=== PATIENT | male | born 1945 | race Two or more races ===

== ENCOUNTER 2017-09-23 08:01 | Day surgery (SDC) | payer MEDICARE ==
[2017-09-23] MEDS ORDERED: BETA ACET/BET NA PHOS MDV 6 MG/ML VIAL IM ONE (08:02)
[2017-09-23] MEDS ORDERED: BUPIVACAINE 0.5 % PF 150 MG/30 ML VIAL ONE (08:10)
[2017-09-23] MEDS ORDERED: DEXAMETHASONE SOD PHOSPHATE 10 MG/ML VIAL ONE (08:10)
[2017-09-23] MEDS ORDERED: IOHEXOL 50 ML IV ONE (08:10)
[2017-09-23] MEDS ORDERED: FENTANYL PF 100MCG/2ML AMPUL ONE (09:48)
[2017-09-23] MEDS ORDERED: MIDAZOLAM HCL 2 MG/2ML VIAL ONE (09:48)
== END 2017-09-23 11:00 | disposition home or self-care (01) ==
LOC: DS 08:01
PROVIDERS: ATTEND Anesthesiology
DX: M70.62 Trochanteric bursitis, left hip (principal); M70.61 Trochanteric bursitis, right hip; M53.3 Sacrococcygeal disorders, not elsewhere classified; M76.30 Iliotibial band syndrome, unspecified leg; M46.96 Unspecified inflammatory spondylopathy, lumbar region; M47.816 Spondylosis without myelopathy or radiculopathy, lumbar region; I10 Essential (primary) hypertension
CPT/HCPCS: 73020; A6209; J0702; J1100; J2250; J3010; J3490; Q9967; Z7610

== ENCOUNTER 2017-10-10 06:49 | Day surgery (SDC) | payer MEDICARE ==
[2017-10-10] MEDS ORDERED: methylPREDNISolone ACETATE 80 MG/ML VIAL ONE (08:24)
[2017-10-10] MEDS ORDERED: BUPIVACAINE 0.25% 75 MG/30 ML VIAL ONE (08:24)
[2017-10-10] MEDS ORDERED: MIDAZOLAM HCL 2 MG/2ML VIAL ONE ×2 (08:26→08:47)
[2017-10-10] MEDS ORDERED: FENTANYL PF 100MCG/2ML AMPUL ONE (08:27)
[2017-10-10] MEDS ORDERED: IOHEXOL 50 ML IV ONE (08:37)
[2017-10-10] MEDS ORDERED: LIDOCAINE 2% 50 ML MDV IJ ONE (08:44)
== END 2017-10-10 10:00 | disposition home or self-care (01) ==
LOC: DS 06:49
PROVIDERS: ATTEND Anesthesiology
DX: M47.816 Spondylosis without myelopathy or radiculopathy, lumbar region (principal); M47.817 Spondylosis without myelopathy or radiculopathy, lumbosacral region; M53.3 Sacrococcygeal disorders, not elsewhere classified; I10 Essential (primary) hypertension; M48.061 Spinal stenosis, lumbar region without neurogenic claudication
CPT/HCPCS: 62323; 72170; A6402; J1040; J2250 ×2; J3010; J3490 ×2; Q9967; Z7610

== ENCOUNTER 2017-10-28 12:28 | Outpatient (CLI) | payer MEDICARE | END 2017-10-28 23:59 | disposition home or self-care (01) | LOC: MSC 12:28 | PROVIDERS: ATTEND Anesthesiology | DX: M54.5 Low back pain (principal); M46.96 Unspecified inflammatory spondylopathy, lumbar region; M51.36 Other intervertebral disc degeneration, lumbar region; M48.061 Spinal stenosis, lumbar region without neurogenic claudication; M47.817 Spondylosis without myelopathy or radiculopathy, lumbosacral region; M25.9 Joint disorder, unspecified; M53.3 Sacrococcygeal disorders, not elsewhere classified; M70.61 Trochanteric bursitis, right hip; M70.62 Trochanteric bursitis, left hip; M76.32 Iliotibial band syndrome, left leg; M76.31 Iliotibial band syndrome, right leg; I10 Essential (primary) hypertension ==

== ENCOUNTER 2017-11-12 07:00 | Day surgery (SDC) | payer MEDICARE ==
[2017-11-12] MEDS ORDERED: FENTANYL PF 100MCG/2ML AMPUL ONE (08:55)
[2017-11-12] MEDS ORDERED: MIDAZOLAM 50 MG/10 ML VIAL ONE (08:55)
[2017-11-12] MEDS ORDERED: methylPREDNISolone ACETATE 80 MG/ML VIAL ONE (08:56)
[2017-11-12] MEDS ORDERED: BUPIVACAINE 0.25% 75 MG/30 ML VIAL ONE (08:56)
[2017-11-12] MEDS ORDERED: IOHEXOL 240MG/ML 50 ML IV ONE (08:56)
[2017-11-12] MEDS ORDERED: LIDOCAINE 1% INJ 50 ML MDV IJ ONE (08:56)
== END 2017-11-12 10:15 | disposition home or self-care (01) ==
LOC: DS 07:00
PROVIDERS: ATTEND Anesthesiology
DX: M47.816 Spondylosis without myelopathy or radiculopathy, lumbar region (principal); I10 Essential (primary) hypertension; Z79.899 Other long term (current) drug therapy
CPT/HCPCS: 72100-TC; A6209; J1040; J2250; J3010; J3490; Q9966; Z7610

== ENCOUNTER 2017-11-18 10:30 | Outpatient (CLI) | payer MEDICARE | END 2017-11-18 23:59 | disposition home or self-care (01) | LOC: MSC 10:30 | PROVIDERS: ATTEND Anesthesiology | DX: M46.96 Unspecified inflammatory spondylopathy, lumbar region (principal); M51.36 Other intervertebral disc degeneration, lumbar region; M48.061 Spinal stenosis, lumbar region without neurogenic claudication; M70.61 Trochanteric bursitis, right hip; M70.62 Trochanteric bursitis, left hip; M47.816 Spondylosis without myelopathy or radiculopathy, lumbar region; M47.817 Spondylosis without myelopathy or radiculopathy, lumbosacral region; M25.9 Joint disorder, unspecified; M53.3 Sacrococcygeal disorders, not elsewhere classified; M76.32 Iliotibial band syndrome, left leg; M76.31 Iliotibial band syndrome, right leg ==

== ENCOUNTER → 2017-12-10 | Day surgery (SDC) | payer MEDICARE ==
[~2017-12-10] MED LIST: BUPIVACAINE 0.25% 75 MG/30 ML VIAL IJ ONE; FENTANYL PF 100MCG/2ML AMPUL ONE; IOHEXOL 240MG/ML 50 ML IV ONE; KETOROLAC TROMETHAMINE INJ 30 MG/ML VIAL ONE; MIDAZOLAM 50 MG/10 ML VIAL ONE; methylPREDNISolone ACETATE 80 MG/ML VIAL ONE
== END | disposition home or self-care (01) ==
LOC: DS 06:47
PROVIDERS: ATTEND Anesthesiology
DX: M47.817 Spondylosis without myelopathy or radiculopathy, lumbosacral region (principal); M51.36 Other intervertebral disc degeneration, lumbar region; M48.061 Spinal stenosis, lumbar region without neurogenic claudication; E78.5 Hyperlipidemia, unspecified; K21.9 Gastro-esophageal reflux disease without esophagitis; I10 Essential (primary) hypertension; Z98.890 Other specified postprocedural states; Z79.899 Other long term (current) drug therapy
CPT/HCPCS: 72020-TC; 73501; A6209; J1040; J1885; J2250; J3010; J3490; J7030; Q9966; Z7610

== ENCOUNTER 2018-02-17 10:45 | Outpatient (CLI) | payer MEDICARE | END 2018-02-17 23:59 | disposition home or self-care (01) | LOC: MSC 10:45 | PROVIDERS: ATTEND Anesthesiology | DX: M46.96 Unspecified inflammatory spondylopathy, lumbar region (principal); M51.36 Other intervertebral disc degeneration, lumbar region; M48.061 Spinal stenosis, lumbar region without neurogenic claudication; M47.816 Spondylosis without myelopathy or radiculopathy, lumbar region; M47.817 Spondylosis without myelopathy or radiculopathy, lumbosacral region; M25.9 Joint disorder, unspecified; M70.61 Trochanteric bursitis, right hip; M70.62 Trochanteric bursitis, left hip; Y93.9 Activity, unspecified; M76.32 Iliotibial band syndrome, left leg; M76.31 Iliotibial band syndrome, right leg; I48.91 Unspecified atrial fibrillation; Z79.1 Long term (current) use of non-steroidal anti-inflammatories (NSAID) ==

== ENCOUNTER 2018-03-17 09:00 | Outpatient (CLI) | payer MEDICARE | END 2018-03-17 23:59 | disposition home or self-care (01) | LOC: MSC 09:00 | PROVIDERS: ATTEND Anesthesiology | DX: M46.96 Unspecified inflammatory spondylopathy, lumbar region (principal); M51.36 Other intervertebral disc degeneration, lumbar region; M48.061 Spinal stenosis, lumbar region without neurogenic claudication; M47.816 Spondylosis without myelopathy or radiculopathy, lumbar region; M25.9 Joint disorder, unspecified; M53.3 Sacrococcygeal disorders, not elsewhere classified; M70.61 Trochanteric bursitis, right hip; M70.62 Trochanteric bursitis, left hip; M76.32 Iliotibial band syndrome, left leg; M76.31 Iliotibial band syndrome, right leg; I10 Essential (primary) hypertension; I48.91 Unspecified atrial fibrillation ==

== ENCOUNTER 2018-07-09 06:48 | Day surgery (SDC) | payer MEDICARE ==
[2018-07-09] MEDS ORDERED: MIDAZOLAM HCL 2 MG/2ML VIAL ONE (08:32)
[2018-07-09] MEDS ORDERED: FENTANYL PF 100MCG/2ML AMPUL ONE (08:32)
[2018-07-09] MEDS ORDERED: methylPREDNISolone ACETATE 80 MG/ML VIAL ONE (08:52)
[2018-07-09] MEDS ORDERED: KETOROLAC TROMETHAMINE INJ 30 MG/ML VIAL ONE (09:24)
== END 2018-07-09 10:01 | disposition home or self-care (01) ==
LOC: DS 06:48
PROVIDERS: ATTEND Anesthesiology
DX: M17.0 Bilateral primary osteoarthritis of knee (principal); M70.62 Trochanteric bursitis, left hip; M70.61 Trochanteric bursitis, right hip; M76.32 Iliotibial band syndrome, left leg; M76.31 Iliotibial band syndrome, right leg; M25.562 Pain in left knee; M25.561 Pain in right knee; I10 Essential (primary) hypertension; Z79.899 Other long term (current) drug therapy; Z98.890 Other specified postprocedural states
CPT/HCPCS: 20610; 64450; 73501 ×2; 73560 ×2; J1040; J1885; J2250; J3010; J7030; Z7610; 73020

== ENCOUNTER 2018-07-28 10:00 | Outpatient (CLI) | payer MEDICARE | END 2018-07-28 23:59 | disposition home or self-care (01) | LOC: MSC 10:00 | PROVIDERS: ATTEND Anesthesiology | DX: M17.0 Bilateral primary osteoarthritis of knee (principal); M46.96 Unspecified inflammatory spondylopathy, lumbar region; M51.36 Other intervertebral disc degeneration, lumbar region; M48.061 Spinal stenosis, lumbar region without neurogenic claudication; M47.816 Spondylosis without myelopathy or radiculopathy, lumbar region; M47.817 Spondylosis without myelopathy or radiculopathy, lumbosacral region; M25.9 Joint disorder, unspecified; M53.3 Sacrococcygeal disorders, not elsewhere classified; M76.31 Iliotibial band syndrome, right leg; M76.32 Iliotibial band syndrome, left leg; M70.62 Trochanteric bursitis, left hip; M70.61 Trochanteric bursitis, right hip; M54.5 Low back pain; M25.561 Pain in right knee; M25.562 Pain in left knee ==

== ENCOUNTER 2018-09-01 09:00 | Outpatient (CLI) | payer MEDICARE | END 2018-09-01 23:59 | disposition home or self-care (01) | LOC: MSC 09:00 | PROVIDERS: ATTEND Anesthesiology | DX: M51.36 Other intervertebral disc degeneration, lumbar region (principal); M46.96 Unspecified inflammatory spondylopathy, lumbar region; M48.061 Spinal stenosis, lumbar region without neurogenic claudication; M47.816 Spondylosis without myelopathy or radiculopathy, lumbar region; M47.817 Spondylosis without myelopathy or radiculopathy, lumbosacral region; M17.0 Bilateral primary osteoarthritis of knee; M62.830 Muscle spasm of back; M70.61 Trochanteric bursitis, right hip; M70.62 Trochanteric bursitis, left hip; M76.32 Iliotibial band syndrome, left leg; M76.31 Iliotibial band syndrome, right leg; M25.9 Joint disorder, unspecified ==

== ENCOUNTER 2018-09-17 07:17 | Day surgery (SDC) | payer MEDICARE ==
[2018-09-17] MEDS ORDERED: BUPIVACAINE 0.25% 75 MG/30 ML VIAL ONE (08:29)
[2018-09-17] MEDS ORDERED: methylPREDNISolone ACETATE 80 MG/ML VIAL ONE ×2 (08:29→10:47)
[2018-09-17] MEDS ORDERED: LIDOCAINE HCL/PF 1% 30 ML SDV ONE (08:29)
[2018-09-17] MEDS ORDERED: MIDAZOLAM HCL 2 MG/2ML VIAL ONE (10:28)
[2018-09-17] MEDS ORDERED: FLUMAZENIL 0.5 MG VIAL ONE (10:48)
[2018-09-17] MEDS ORDERED: KETOROLAC TROMETHAMINE INJ 30 MG/ML VIAL ONE (10:55)
[2018-09-17] MEDS ORDERED: HYDROCODONE/APAP 5/325MG 1 EACH TABLET PO ONE (11:30)
== END 2018-09-17 12:20 | disposition home or self-care (01) ==
LOC: DS 07:17
PROVIDERS: ATTEND Anesthesiology
DX: M47.816 Spondylosis without myelopathy or radiculopathy, lumbar region (principal); M46.96 Unspecified inflammatory spondylopathy, lumbar region; M70.62 Trochanteric bursitis, left hip; M70.61 Trochanteric bursitis, right hip; I10 Essential (primary) hypertension; Z79.899 Other long term (current) drug therapy
CPT/HCPCS: 72100-TC; A6209; J1040; J1885; J2250; J3490

== ENCOUNTER 2018-09-29 11:00 | Outpatient (CLI) | payer MEDICARE | END 2018-09-29 23:59 | disposition home or self-care (01) | LOC: MSC 11:00 | PROVIDERS: ATTEND Anesthesiology | DX: M46.96 Unspecified inflammatory spondylopathy, lumbar region (principal); M17.0 Bilateral primary osteoarthritis of knee; M51.36 Other intervertebral disc degeneration, lumbar region; M48.061 Spinal stenosis, lumbar region without neurogenic claudication; M47.816 Spondylosis without myelopathy or radiculopathy, lumbar region; M47.817 Spondylosis without myelopathy or radiculopathy, lumbosacral region; M53.3 Sacrococcygeal disorders, not elsewhere classified; M70.61 Trochanteric bursitis, right hip; M70.62 Trochanteric bursitis, left hip; M76.32 Iliotibial band syndrome, left leg; M76.31 Iliotibial band syndrome, right leg; M25.9 Joint disorder, unspecified; M62.830 Muscle spasm of back; Y93.9 Activity, unspecified ==

== ENCOUNTER 2019-01-05 09:00 | Outpatient (CLI) | payer MEDICARE | END 2019-01-05 23:59 | disposition home or self-care (01) | LOC: MSC 09:00 | PROVIDERS: ATTEND Anesthesiology | DX: M46.96 Unspecified inflammatory spondylopathy, lumbar region (principal); M48.07 Spinal stenosis, lumbosacral region; M47.816 Spondylosis without myelopathy or radiculopathy, lumbar region; M47.817 Spondylosis without myelopathy or radiculopathy, lumbosacral region; M51.36 Other intervertebral disc degeneration, lumbar region; M62.830 Muscle spasm of back; M25.9 Joint disorder, unspecified; M53.3 Sacrococcygeal disorders, not elsewhere classified; M17.0 Bilateral primary osteoarthritis of knee; M76.32 Iliotibial band syndrome, left leg; M76.31 Iliotibial band syndrome, right leg; M70.61 Trochanteric bursitis, right hip; M70.62 Trochanteric bursitis, left hip; I10 Essential (primary) hypertension ==

== ENCOUNTER 2019-02-02 09:00 | Outpatient (CLI) | payer MEDICARE | END 2019-02-02 23:59 | disposition home or self-care (01) | LOC: MSC 09:00 | PROVIDERS: ATTEND Anesthesiology | DX: M17.0 Bilateral primary osteoarthritis of knee (principal); M25.9 Joint disorder, unspecified; M46.96 Unspecified inflammatory spondylopathy, lumbar region; M51.36 Other intervertebral disc degeneration, lumbar region; M47.816 Spondylosis without myelopathy or radiculopathy, lumbar region; M47.817 Spondylosis without myelopathy or radiculopathy, lumbosacral region; M53.3 Sacrococcygeal disorders, not elsewhere classified; M70.61 Trochanteric bursitis, right hip; M70.62 Trochanteric bursitis, left hip; M76.32 Iliotibial band syndrome, left leg; M76.31 Iliotibial band syndrome, right leg; M62.830 Muscle spasm of back; I10 Essential (primary) hypertension ==

== ENCOUNTER 2019-03-02 11:40 | Outpatient (CLI) | payer MEDICARE | END 2019-03-02 23:59 | disposition home or self-care (01) | LOC: MSC 11:40 | PROVIDERS: ATTEND Anesthesiology | DX: M51.36 Other intervertebral disc degeneration, lumbar region (principal); M46.96 Unspecified inflammatory spondylopathy, lumbar region; M48.061 Spinal stenosis, lumbar region without neurogenic claudication; M47.816 Spondylosis without myelopathy or radiculopathy, lumbar region; M47.817 Spondylosis without myelopathy or radiculopathy, lumbosacral region; M62.830 Muscle spasm of back; M25.9 Joint disorder, unspecified; M53.3 Sacrococcygeal disorders, not elsewhere classified; M70.61 Trochanteric bursitis, right hip; M70.62 Trochanteric bursitis, left hip; M76.32 Iliotibial band syndrome, left leg; M76.31 Iliotibial band syndrome, right leg; M17.0 Bilateral primary osteoarthritis of knee; I10 Essential (primary) hypertension; Z85.820 Personal history of malignant melanoma of skin; Z98.890 Other specified postprocedural states ==

== ENCOUNTER 2019-04-20 10:00 | Outpatient (CLI) | payer MEDICARE | END 2019-04-20 23:59 | disposition home or self-care (01) | LOC: MSC 10:00 | PROVIDERS: ATTEND Anesthesiology | DX: M46.96 Unspecified inflammatory spondylopathy, lumbar region (principal); M51.36 Other intervertebral disc degeneration, lumbar region; M47.816 Spondylosis without myelopathy or radiculopathy, lumbar region; M47.817 Spondylosis without myelopathy or radiculopathy, lumbosacral region; M48.061 Spinal stenosis, lumbar region without neurogenic claudication; M25.9 Joint disorder, unspecified; M53.3 Sacrococcygeal disorders, not elsewhere classified; M17.0 Bilateral primary osteoarthritis of knee; M70.61 Trochanteric bursitis, right hip; M70.62 Trochanteric bursitis, left hip; M76.32 Iliotibial band syndrome, left leg; M76.31 Iliotibial band syndrome, right leg; M62.830 Muscle spasm of back; Z85.820 Personal history of malignant melanoma of skin; Z98.890 Other specified postprocedural states; I10 Essential (primary) hypertension; Z79.899 Other long term (current) drug therapy ==

== ENCOUNTER → 2019-10-19 | Outpatient (CLI) | payer MEDICARE | END | disposition home or self-care (01) | LOC: MSC 09:25 | PROVIDERS: ATTEND Anesthesiology | DX: M17.0 Bilateral primary osteoarthritis of knee (principal); M46.96 Unspecified inflammatory spondylopathy, lumbar region; M51.36 Other intervertebral disc degeneration, lumbar region; M48.061 Spinal stenosis, lumbar region without neurogenic claudication; M47.816 Spondylosis without myelopathy or radiculopathy, lumbar region; M47.817 Spondylosis without myelopathy or radiculopathy, lumbosacral region; M62.830 Muscle spasm of back; M53.3 Sacrococcygeal disorders, not elsewhere classified; M70.61 Trochanteric bursitis, right hip; M70.62 Trochanteric bursitis, left hip; M76.32 Iliotibial band syndrome, left leg; M76.31 Iliotibial band syndrome, right leg; M25.9 Joint disorder, unspecified; I10 Essential (primary) hypertension; I48.91 Unspecified atrial fibrillation; Z85.820 Personal history of malignant melanoma of skin; Z90.09 Acquired absence of other part of head and neck; Z79.899 Other long term (current) drug therapy ==

== ENCOUNTER 2020-01-25 09:55 | Outpatient (CLI) | payer MEDICARE | END 2020-01-25 23:59 | disposition home or self-care (01) | LOC: MSC 09:55 | PROVIDERS: ATTEND Anesthesiology | DX: M17.0 Bilateral primary osteoarthritis of knee (principal); M46.96 Unspecified inflammatory spondylopathy, lumbar region; M51.36 Other intervertebral disc degeneration, lumbar region; M47.816 Spondylosis without myelopathy or radiculopathy, lumbar region; M47.817 Spondylosis without myelopathy or radiculopathy, lumbosacral region; M48.061 Spinal stenosis, lumbar region without neurogenic claudication; M53.3 Sacrococcygeal disorders, not elsewhere classified; M70.61 Trochanteric bursitis, right hip; M70.62 Trochanteric bursitis, left hip; M76.32 Iliotibial band syndrome, left leg; M76.31 Iliotibial band syndrome, right leg; M62.830 Muscle spasm of back; M25.9 Joint disorder, unspecified; I10 Essential (primary) hypertension; Z85.828 Personal history of other malignant neoplasm of skin ==

== ENCOUNTER 2020-02-29 08:56 | Outpatient (CLI) | payer MEDICARE | END 2020-02-29 23:59 | disposition home or self-care (01) | LOC: MSC 08:56 | PROVIDERS: ATTEND Anesthesiology | DX: M70.61 Trochanteric bursitis, right hip (principal); M70.62 Trochanteric bursitis, left hip; M17.0 Bilateral primary osteoarthritis of knee; M76.32 Iliotibial band syndrome, left leg; M76.31 Iliotibial band syndrome, right leg; M46.96 Unspecified inflammatory spondylopathy, lumbar region; M51.36 Other intervertebral disc degeneration, lumbar region; M48.061 Spinal stenosis, lumbar region without neurogenic claudication; M47.816 Spondylosis without myelopathy or radiculopathy, lumbar region; M47.817 Spondylosis without myelopathy or radiculopathy, lumbosacral region; M53.3 Sacrococcygeal disorders, not elsewhere classified; M62.830 Muscle spasm of back; M25.9 Joint disorder, unspecified; I10 Essential (primary) hypertension; I48.91 Unspecified atrial fibrillation ==

== ENCOUNTER → 2020-04-25 | Outpatient (CLI) | payer MEDICARE | END | disposition home or self-care (01) | LOC: MSC 08:45 | PROVIDERS: ATTEND Anesthesiology | DX: M46.96 Unspecified inflammatory spondylopathy, lumbar region (principal); M51.36 Other intervertebral disc degeneration, lumbar region; M47.816 Spondylosis without myelopathy or radiculopathy, lumbar region; M48.061 Spinal stenosis, lumbar region without neurogenic claudication; M62.830 Muscle spasm of back; M47.817 Spondylosis without myelopathy or radiculopathy, lumbosacral region; M76.32 Iliotibial band syndrome, left leg; M76.31 Iliotibial band syndrome, right leg; M17.0 Bilateral primary osteoarthritis of knee; M70.61 Trochanteric bursitis, right hip; M70.62 Trochanteric bursitis, left hip ==

== ENCOUNTER → 2020-05-09 | Outpatient (CLI) | payer MEDICARE | END | disposition home or self-care (01) | LOC: MSC 10:50 | PROVIDERS: ATTEND Anesthesiology | DX: M46.96 Unspecified inflammatory spondylopathy, lumbar region (principal); M51.36 Other intervertebral disc degeneration, lumbar region; M47.816 Spondylosis without myelopathy or radiculopathy, lumbar region; M48.061 Spinal stenosis, lumbar region without neurogenic claudication; M62.830 Muscle spasm of back; M53.3 Sacrococcygeal disorders, not elsewhere classified; M76.32 Iliotibial band syndrome, left leg; M76.31 Iliotibial band syndrome, right leg; M70.61 Trochanteric bursitis, right hip; M70.62 Trochanteric bursitis, left hip; M17.0 Bilateral primary osteoarthritis of knee ==

== ENCOUNTER 2020-06-12 14:22 | Outpatient (CLI) | payer MEDICARE ==
[2020-06-15] MEDS ORDERED: AMIO200T4 PO (09:03)
== END 2020-06-12 23:59 | disposition home or self-care (01) ==
LOC: LAB 14:22
PROVIDERS: ATTEND Anesthesiology
DX: Z01.812 Encounter for preprocedural laboratory examination (principal); Z20.828 Contact with and (suspected) exposure to other viral communicable diseases
CPT/HCPCS: 87426; C9803 ×2; U0003

== ENCOUNTER 2020-06-15 06:37 | Day surgery (SDC) | payer MEDICARE ==
[2020-06-15] MEDS ORDERED: CARV25TA2 PO (09:03)
[2020-06-15] MEDS ORDERED: AMIO200T5 PO (09:03)
[2020-06-15] MEDS ORDERED: RAMI5CAP66 PO (09:03)
[2020-06-15] MEDS ORDERED: ATOR10TA PO (09:03)
[2020-06-15] MEDS ORDERED: IOHEXOL 240MG/ML 50 ML IV ONE (10:19)
[2020-06-15] MEDS ORDERED: BUPIVACAINE 0.25% 75 MG/30 ML VIAL ONE (10:19)
[2020-06-15] MEDS ORDERED: methylPREDNISolone ACETATE 80 MG/ML VIAL ONE (10:20)
[2020-06-15] MEDS ORDERED: MIDAZOLAM HCL 2 MG/2ML VIAL ONE (10:37)
--- NOTE | 2020-06-15 12:33 | NUR ---
RN MS1- OUTPATIENT PATIENT RETURED FROM [facility] FOR STEROUID SHOT BI LATERAL KNEES . PATIENT DISCHARGE PER DR. SCHWARTZ .
== END 2020-06-15 16:00 | disposition home or self-care (01) ==
LOC: DS 06:37 → MEDSG1 06:40 → UNDOADMIN 06:40 → UNDODISIN 12:54 → DS 16:00
PROVIDERS: ATTEND Anesthesiology
DX: M17.0 Bilateral primary osteoarthritis of knee (principal); E66.3 Overweight; I10 Essential (primary) hypertension
CPT/HCPCS: 27369; 73560 ×2; 73580; 77002; A6209; J1040; J2250; J3490 ×2; J7030; Q9966; G0378

== ENCOUNTER 2020-09-12 09:07 | Outpatient (CLI) | payer MEDICARE ==
[~2020-09-12 09:07] MED LIST changes: +AMIO200T5 PO; +ATOR10TA PO; -BUPIVACAINE 0.25% 75 MG/30 ML VIAL IJ ONE; +CARV25TA2 PO; -FENTANYL PF 100MCG/2ML AMPUL ONE; -IOHEXOL 240MG/ML 50 ML IV ONE; -KETOROLAC TROMETHAMINE INJ 30 MG/ML VIAL ONE; -MIDAZOLAM 50 MG/10 ML VIAL ONE; +RAMI5CAP66 PO; -methylPREDNISolone ACETATE 80 MG/ML VIAL ONE
== END 2020-09-12 23:59 | disposition home or self-care (01) ==
LOC: MSC 09:07
PROVIDERS: ATTEND Anesthesiology
DX: M76.31 Iliotibial band syndrome, right leg (principal); M76.32 Iliotibial band syndrome, left leg; M17.0 Bilateral primary osteoarthritis of knee; M70.61 Trochanteric bursitis, right hip; M70.62 Trochanteric bursitis, left hip; M25.9 Joint disorder, unspecified
CPT/HCPCS: 96372; Q4177

== ENCOUNTER 2020-11-21 08:56 | Outpatient (CLI) | payer MEDICARE | END 2020-11-21 23:59 | disposition home or self-care (01) | LOC: MSC 08:56 | PROVIDERS: ATTEND Anesthesiology | DX: M51.36 Other intervertebral disc degeneration, lumbar region (principal); M48.061 Spinal stenosis, lumbar region without neurogenic claudication; M47.816 Spondylosis without myelopathy or radiculopathy, lumbar region; M47.817 Spondylosis without myelopathy or radiculopathy, lumbosacral region; M53.3 Sacrococcygeal disorders, not elsewhere classified; M62.830 Muscle spasm of back; M25.9 Joint disorder, unspecified; M70.61 Trochanteric bursitis, right hip; M70.62 Trochanteric bursitis, left hip; M76.32 Iliotibial band syndrome, left leg; M76.31 Iliotibial band syndrome, right leg; M17.0 Bilateral primary osteoarthritis of knee; Z79.891 Long term (current) use of opiate analgesic ==

== ENCOUNTER 2020-12-13 08:07 | Outpatient (CLI) | payer MEDICARE | END 2020-12-13 23:59 | disposition home or self-care (01) | LOC: LAB 08:07 | PROVIDERS: ATTEND Anesthesiology | DX: Z01.812 Encounter for preprocedural laboratory examination (principal); Z20.822 Contact with and (suspected) exposure to COVID-19 | CPT/HCPCS: C9803; U0003 ==

== ENCOUNTER 2020-12-19 11:12 | Day surgery (SDC) | payer MEDICARE ==
[2020-12-19] MEDS ORDERED: LIDOCAINE HCL/MPF 1% 30 ML VIAL IJ ONE (11:54)
[2020-12-19] MEDS ORDERED: TRIAMCINOLONE ACETONIDE SUSP 40 MG/ML 1 ML ONE (11:54)
[2020-12-19] MEDS ORDERED: IOHEXOL 240MG/ML 50 ML IV ONE (11:54)
[2020-12-19] MEDS ORDERED: BUPIVACAINE 0.5 % PF 150 MG/30 ML VIAL ONE (11:55)
[2020-12-19] MEDS ORDERED: methylPREDNISolone ACETATE 80 MG/ML VIAL ONE (12:48)
== END 2020-12-19 14:02 | disposition home or self-care (01) ==
LOC: DS 11:12
PROVIDERS: ATTEND Anesthesiology
DX: M17.0 Bilateral primary osteoarthritis of knee (principal); E66.01 Morbid (severe) obesity due to excess calories; I10 Essential (primary) hypertension; Z79.899 Other long term (current) drug therapy
CPT/HCPCS: 73560-TC; A6402; J1040; J2704; J3490; J7120; Q9966

== ENCOUNTER 2021-01-09 09:25 | Outpatient (CLI) | payer MEDICARE | END 2021-01-09 23:59 | disposition home or self-care (01) | LOC: MSC 09:25 | PROVIDERS: ATTEND Anesthesiology | DX: M46.96 Unspecified inflammatory spondylopathy, lumbar region (principal); M51.36 Other intervertebral disc degeneration, lumbar region; M48.061 Spinal stenosis, lumbar region without neurogenic claudication; M47.816 Spondylosis without myelopathy or radiculopathy, lumbar region; M47.817 Spondylosis without myelopathy or radiculopathy, lumbosacral region; M53.3 Sacrococcygeal disorders, not elsewhere classified; M62.830 Muscle spasm of back; M17.0 Bilateral primary osteoarthritis of knee; M70.61 Trochanteric bursitis, right hip; M70.62 Trochanteric bursitis, left hip; M76.32 Iliotibial band syndrome, left leg; M76.31 Iliotibial band syndrome, right leg; Z79.891 Long term (current) use of opiate analgesic ==

== ENCOUNTER 2021-02-02 06:49 | Outpatient (CLI) | payer MEDICARE | END 2021-02-02 23:59 | disposition home or self-care (01) | LOC: LAB 06:49 | PROVIDERS: ATTEND Anesthesiology | DX: Z01.812 Encounter for preprocedural laboratory examination (principal); Z20.822 Contact with and (suspected) exposure to COVID-19 | CPT/HCPCS: C9803; U0003 ==

== ENCOUNTER 2021-02-06 07:14 | Day surgery (SDC) | payer MEDICARE ==
[2021-02-06] MEDS ORDERED: BUME1TAB8 PO (07:50)
[2021-02-06] MEDS ORDERED: POTA-10 PO (07:50)
[2021-02-06] MEDS ORDERED: methylPREDNISolone ACETATE 80 MG/ML VIAL ONE (08:06)
[2021-02-06] MEDS ORDERED: IOHEXOL 240MG/ML 50 ML IV ONE (08:06)
[2021-02-06] MEDS ORDERED: BUPIVACAINE 0.25% 75 MG/30 ML VIAL ONE (08:06)
[2021-02-06] MEDS ORDERED: DEXAMETHASONE SOD PHOSPHATE 10 MG/ML VIAL ONE ×2 (08:06→08:07)
== END 2021-02-06 18:00 | disposition home or self-care (01) ==
LOC: DS 07:14 → MED 07:18 → UNDOADMIN 07:18 → UNDODISIN 10:20 → DS 18:00
PROVIDERS: ATTEND Anesthesiology
DX: M25.561 Pain in right knee (principal); M17.0 Bilateral primary osteoarthritis of knee; I10 Essential (primary) hypertension; K21.9 Gastro-esophageal reflux disease without esophagitis; Z79.899 Other long term (current) drug therapy
CPT/HCPCS: 73560-TC; G0378; J1040; J1100; J2704; J3490; Q9966

== ENCOUNTER 2021-02-13 13:25 | Outpatient (CLI) | payer MEDICARE ==
[~2021-02-13 13:25] MED LIST changes: +BUME1TAB8 PO; +POTA-10 PO; -RAMI5CAP66 PO
== END 2021-02-13 23:59 | disposition home or self-care (01) ==
LOC: MSC 13:25
PROVIDERS: ATTEND Anesthesiology
DX: M48.061 Spinal stenosis, lumbar region without neurogenic claudication (principal); M46.96 Unspecified inflammatory spondylopathy, lumbar region; M51.36 Other intervertebral disc degeneration, lumbar region; M47.816 Spondylosis without myelopathy or radiculopathy, lumbar region; M47.817 Spondylosis without myelopathy or radiculopathy, lumbosacral region; M53.3 Sacrococcygeal disorders, not elsewhere classified; M62.830 Muscle spasm of back; M17.0 Bilateral primary osteoarthritis of knee; M76.32 Iliotibial band syndrome, left leg; M76.31 Iliotibial band syndrome, right leg; M70.61 Trochanteric bursitis, right hip; M70.62 Trochanteric bursitis, left hip; M25.9 Joint disorder, unspecified; Z79.891 Long term (current) use of opiate analgesic

== ENCOUNTER 2021-02-20 13:25 | Outpatient (CLI) | payer MEDICARE | END 2021-02-20 23:59 | disposition home or self-care (01) | LOC: MSC 13:25 | PROVIDERS: ATTEND Anesthesiology | DX: M48.061 Spinal stenosis, lumbar region without neurogenic claudication (principal); M46.96 Unspecified inflammatory spondylopathy, lumbar region; M51.36 Other intervertebral disc degeneration, lumbar region; M47.816 Spondylosis without myelopathy or radiculopathy, lumbar region; M47.817 Spondylosis without myelopathy or radiculopathy, lumbosacral region; M53.3 Sacrococcygeal disorders, not elsewhere classified; M62.830 Muscle spasm of back; M25.9 Joint disorder, unspecified; M76.32 Iliotibial band syndrome, left leg; M76.31 Iliotibial band syndrome, right leg; M17.0 Bilateral primary osteoarthritis of knee; M70.61 Trochanteric bursitis, right hip; M70.62 Trochanteric bursitis, left hip; Z79.891 Long term (current) use of opiate analgesic ==

== ENCOUNTER 2021-02-28 11:43 | Outpatient (CLI) | payer MEDICARE | END 2021-02-28 23:59 | disposition home or self-care (01) | LOC: LAB 11:43 | PROVIDERS: ATTEND Anesthesiology | DX: Z01.812 Encounter for preprocedural laboratory examination (principal); Z20.822 Contact with and (suspected) exposure to COVID-19 | CPT/HCPCS: C9803; U0003 ==

== ENCOUNTER 2021-03-06 06:44 | Day surgery (SDC) | payer MEDICARE ==
[2021-03-06] MEDS ORDERED: FENTANYL PF 100MCG/2ML AMPUL ONE (07:49)
[2021-03-06] MEDS ORDERED: IOHEXOL 240MG/ML 50 ML IV ONE (07:57)
[2021-03-06] MEDS ORDERED: LIDOCAINE HCL/MPF 1% 30 ML VIAL IJ ONE (07:57)
[2021-03-06] MEDS ORDERED: methylPREDNISolone ACETATE 80 MG/ML VIAL ONE (07:58)
[2021-03-06] MEDS ORDERED: BUPIVACAINE 0.25% 75 MG/30 ML VIAL ONE (07:58)
== END 2021-03-06 09:40 | disposition home or self-care (01) ==
LOC: DS 06:44
PROVIDERS: ATTEND Anesthesiology
DX: M54.5 Low back pain (principal); M47.817 Spondylosis without myelopathy or radiculopathy, lumbosacral region; I10 Essential (primary) hypertension; I48.91 Unspecified atrial fibrillation; Z79.82 Long term (current) use of aspirin; Z98.890 Other specified postprocedural states; Z79.899 Other long term (current) drug therapy
CPT/HCPCS: 64493; 64494; 64495; 72100; A6402; J1040; J1885; J2704; J3010; J3490; Q9966

== ENCOUNTER 2021-04-24 08:55 | Outpatient (CLI) | payer MEDICARE | END 2021-04-24 23:59 | disposition home or self-care (01) | LOC: MSC 08:55 | PROVIDERS: ATTEND Anesthesiology | DX: M51.36 Other intervertebral disc degeneration, lumbar region (principal); M48.061 Spinal stenosis, lumbar region without neurogenic claudication; M46.96 Unspecified inflammatory spondylopathy, lumbar region; M47.816 Spondylosis without myelopathy or radiculopathy, lumbar region; M43.26 Fusion of spine, lumbar region; M47.817 Spondylosis without myelopathy or radiculopathy, lumbosacral region; M62.830 Muscle spasm of back; M53.3 Sacrococcygeal disorders, not elsewhere classified; M25.9 Joint disorder, unspecified; M17.0 Bilateral primary osteoarthritis of knee; M70.61 Trochanteric bursitis, right hip; M70.62 Trochanteric bursitis, left hip; M76.32 Iliotibial band syndrome, left leg; M76.31 Iliotibial band syndrome, right leg; Z79.891 Long term (current) use of opiate analgesic ==

== ENCOUNTER 2021-05-07 09:29 | Outpatient (CLI) | payer MEDICARE | END 2021-05-07 23:59 | disposition home or self-care (01) | LOC: LAB 09:29 | PROVIDERS: ATTEND Anesthesiology | DX: Z01.812 Encounter for preprocedural laboratory examination (principal); Z20.822 Contact with and (suspected) exposure to COVID-19 | CPT/HCPCS: C9803; U0003 ==

== ENCOUNTER 2021-05-10 06:44 | Day surgery (SDC) | payer MEDICARE ==
[2021-05-10] MEDS ORDERED: ANESTHESIA TRAY IN PYXIS 1 EA TRAY MC ONE (07:34)
[2021-05-10] MEDS ORDERED: BUPIVACAINE 0.25% 75 MG/30 ML VIAL ONE (07:45)
[2021-05-10] MEDS ORDERED: IOHEXOL 240MG/ML 0 ML IV ONE (07:45)
[2021-05-10] MEDS ORDERED: DEXAMETHASONE SOD PHOSPHATE 10 MG/ML VIAL ONE (07:46)
[2021-05-10] MEDS ORDERED: methylPREDNISolone ACETATE 40 MG/ML VIAL ONE (07:46)
[2021-05-10] MEDS ORDERED: LIDOCAINE HCL/MPF 1% 30 ML VIAL IJ ONE (07:50)
[2021-05-10] MEDS ORDERED: methylPREDNISolone ACETATE 80 MG/ML VIAL ONE (07:50)
[2021-05-10] MEDS ORDERED: MIDAZOLAM HCL 2 MG/2ML VIAL ONE (07:57)
[2021-05-10] MEDS ORDERED: PROPOFOL 20 ML IV ONE (07:57)
== END 2021-05-10 09:20 | disposition home or self-care (01) ==
LOC: DS 06:44
PROVIDERS: ATTEND Anesthesiology
DX: M17.0 Bilateral primary osteoarthritis of knee (principal); I10 Essential (primary) hypertension; I48.91 Unspecified atrial fibrillation; G89.29 Other chronic pain; Z98.890 Other specified postprocedural states; Z79.899 Other long term (current) drug therapy
CPT/HCPCS: 27369; 73521; 73560 ×2; 73580; A6209; J1030; J1040; J1100; J2250; J2704; J3490 ×3; Q9966

== ENCOUNTER 2021-05-22 09:50 | Outpatient (CLI) | payer MEDICARE | END 2021-05-22 23:59 | disposition home or self-care (01) | LOC: MSC 09:50 | PROVIDERS: ATTEND Anesthesiology | DX: M48.061 Spinal stenosis, lumbar region without neurogenic claudication (principal); M46.96 Unspecified inflammatory spondylopathy, lumbar region; M51.36 Other intervertebral disc degeneration, lumbar region; M47.816 Spondylosis without myelopathy or radiculopathy, lumbar region; M47.817 Spondylosis without myelopathy or radiculopathy, lumbosacral region; M62.830 Muscle spasm of back; M53.3 Sacrococcygeal disorders, not elsewhere classified; M25.9 Joint disorder, unspecified; M17.0 Bilateral primary osteoarthritis of knee; M70.61 Trochanteric bursitis, right hip; M70.62 Trochanteric bursitis, left hip; M76.32 Iliotibial band syndrome, left leg; M76.31 Iliotibial band syndrome, right leg; Z79.891 Long term (current) use of opiate analgesic ==

== ENCOUNTER 2021-07-03 10:00 | Outpatient (CLI) | payer MEDICARE | END 2021-07-03 23:59 | disposition home or self-care (01) | LOC: MSC 10:00 | PROVIDERS: ATTEND Anesthesiology | DX: M51.36 Other intervertebral disc degeneration, lumbar region (principal); M48.061 Spinal stenosis, lumbar region without neurogenic claudication; M46.96 Unspecified inflammatory spondylopathy, lumbar region; M47.816 Spondylosis without myelopathy or radiculopathy, lumbar region; M47.817 Spondylosis without myelopathy or radiculopathy, lumbosacral region; M53.3 Sacrococcygeal disorders, not elsewhere classified; M62.830 Muscle spasm of back; M17.0 Bilateral primary osteoarthritis of knee; M70.61 Trochanteric bursitis, right hip; M70.62 Trochanteric bursitis, left hip; M76.32 Iliotibial band syndrome, left leg; M76.31 Iliotibial band syndrome, right leg; Z79.891 Long term (current) use of opiate analgesic ==

== ENCOUNTER 2021-07-31 08:39 | Outpatient (CLI) | payer MEDICARE | END 2021-07-31 23:59 | disposition home or self-care (01) | LOC: MSC 08:39 | PROVIDERS: ATTEND Anesthesiology | DX: M46.96 Unspecified inflammatory spondylopathy, lumbar region (principal); M51.36 Other intervertebral disc degeneration, lumbar region; M47.816 Spondylosis without myelopathy or radiculopathy, lumbar region; M47.817 Spondylosis without myelopathy or radiculopathy, lumbosacral region; M48.061 Spinal stenosis, lumbar region without neurogenic claudication; M62.830 Muscle spasm of back; M25.9 Joint disorder, unspecified; M17.0 Bilateral primary osteoarthritis of knee; M70.61 Trochanteric bursitis, right hip; M70.62 Trochanteric bursitis, left hip; M76.32 Iliotibial band syndrome, left leg; M76.31 Iliotibial band syndrome, right leg; Z79.891 Long term (current) use of opiate analgesic; Z79.1 Long term (current) use of non-steroidal anti-inflammatories (NSAID) ==

== ENCOUNTER 2021-10-23 10:00 | Outpatient (CLI) | payer MEDICARE | END 2021-10-23 23:59 | disposition home or self-care (01) | LOC: MSC 10:00 | PROVIDERS: ATTEND Anesthesiology | DX: M48.061 Spinal stenosis, lumbar region without neurogenic claudication (principal); M46.96 Unspecified inflammatory spondylopathy, lumbar region; M51.36 Other intervertebral disc degeneration, lumbar region; M47.816 Spondylosis without myelopathy or radiculopathy, lumbar region; M47.817 Spondylosis without myelopathy or radiculopathy, lumbosacral region; M62.830 Muscle spasm of back; M25.9 Joint disorder, unspecified; M17.0 Bilateral primary osteoarthritis of knee; M53.3 Sacrococcygeal disorders, not elsewhere classified; M70.61 Trochanteric bursitis, right hip; M70.62 Trochanteric bursitis, left hip; M76.32 Iliotibial band syndrome, left leg; M76.31 Iliotibial band syndrome, right leg; Z79.891 Long term (current) use of opiate analgesic ==

== ENCOUNTER 2021-11-19 08:29 | Outpatient (CLI) | payer MEDICARE | END 2021-11-19 23:59 | disposition home or self-care (01) | LOC: LAB 08:29 | PROVIDERS: ATTEND Anesthesiology | DX: Z01.812 Encounter for preprocedural laboratory examination (principal); Z20.822 Contact with and (suspected) exposure to COVID-19 | CPT/HCPCS: C9803; U0003 ==

== ENCOUNTER 2021-11-22 07:17 | Day surgery (SDC) | payer MEDICARE ==
[2021-11-22] MEDS ORDERED: LIDOCAINE 1% INJ 50 ML MDV IJ ONE (09:13)
[2021-11-22] MEDS ORDERED: BUPIVACAINE 0.25% 75 MG/30 ML VIAL ONE (09:13)
[2021-11-22] MEDS ORDERED: IOHEXOL 50 ML IV ONE (09:13)
[2021-11-22] MEDS ORDERED: DEXAMETHASONE SOD PHOSPHATE 10 MG/ML VIAL ONE (09:14)
[2021-11-22] MEDS ORDERED: methylPREDNISolone ACETATE 80 MG/ML VIAL ONE ×2 (09:14)
== END 2021-11-22 11:29 | disposition home or self-care (01) ==
LOC: DS 07:17
PROVIDERS: ATTEND Anesthesiology
DX: M70.62 Trochanteric bursitis, left hip (principal); M70.61 Trochanteric bursitis, right hip; Y93.89 Activity, other specified; I10 Essential (primary) hypertension; E66.3 Overweight
CPT/HCPCS: 20610; 27369; 73521; 73560 ×2; 77002; J0690; J1040 ×2; J1100; J2704; J3490 ×3; J7030; Q9967

== ENCOUNTER 2021-12-04 09:05 | Outpatient (CLI) | payer MEDICARE | END 2021-12-04 23:59 | disposition home or self-care (01) | LOC: MSC 09:05 | PROVIDERS: ATTEND Anesthesiology | DX: M48.061 Spinal stenosis, lumbar region without neurogenic claudication (principal); M46.96 Unspecified inflammatory spondylopathy, lumbar region; M51.36 Other intervertebral disc degeneration, lumbar region; M47.816 Spondylosis without myelopathy or radiculopathy, lumbar region; M47.817 Spondylosis without myelopathy or radiculopathy, lumbosacral region; M62.830 Muscle spasm of back; M25.9 Joint disorder, unspecified; M17.0 Bilateral primary osteoarthritis of knee; M53.3 Sacrococcygeal disorders, not elsewhere classified; M70.61 Trochanteric bursitis, right hip; M70.62 Trochanteric bursitis, left hip; M76.31 Iliotibial band syndrome, right leg; M76.32 Iliotibial band syndrome, left leg; Z79.891 Long term (current) use of opiate analgesic ==

== ENCOUNTER → 2021-12-18 | Outpatient (CLI) | payer MEDICARE | END | disposition home or self-care (01) | LOC: MSC 11:45 | PROVIDERS: ATTEND Anesthesiology | DX: M48.061 Spinal stenosis, lumbar region without neurogenic claudication (principal); M46.96 Unspecified inflammatory spondylopathy, lumbar region; M51.36 Other intervertebral disc degeneration, lumbar region; M47.816 Spondylosis without myelopathy or radiculopathy, lumbar region; M47.817 Spondylosis without myelopathy or radiculopathy, lumbosacral region; M62.830 Muscle spasm of back; M25.9 Joint disorder, unspecified; M17.0 Bilateral primary osteoarthritis of knee; M53.3 Sacrococcygeal disorders, not elsewhere classified; M70.61 Trochanteric bursitis, right hip; M70.62 Trochanteric bursitis, left hip; M76.31 Iliotibial band syndrome, right leg; M76.32 Iliotibial band syndrome, left leg; Z79.891 Long term (current) use of opiate analgesic ==

== ENCOUNTER → 2022-01-22 | Outpatient (CLI) | payer MEDICARE ==
[~2022-01-22] MED LIST changes: +ASPI-1169 PO; +ASPI-992 PO; +DOCU100C36 PO; +FAMO20TA80 PO; +Tamsulosin PO
== END | disposition home or self-care (01) ==
LOC: MSC 13:00
PROVIDERS: ATTEND Anesthesiology
DX: M46.96 Unspecified inflammatory spondylopathy, lumbar region (principal); M51.36 Other intervertebral disc degeneration, lumbar region; M48.061 Spinal stenosis, lumbar region without neurogenic claudication; M47.816 Spondylosis without myelopathy or radiculopathy, lumbar region; M47.817 Spondylosis without myelopathy or radiculopathy, lumbosacral region; M53.3 Sacrococcygeal disorders, not elsewhere classified; M62.830 Muscle spasm of back; M25.9 Joint disorder, unspecified; M17.0 Bilateral primary osteoarthritis of knee; M70.61 Trochanteric bursitis, right hip; M70.62 Trochanteric bursitis, left hip; M76.32 Iliotibial band syndrome, left leg; M76.31 Iliotibial band syndrome, right leg; Z79.891 Long term (current) use of opiate analgesic

== ENCOUNTER 2022-01-23 10:14 | Outpatient (CLI) | payer MEDICARE ==
[~2022-01-23 10:14] MED LIST changes: -ASPI-1169 PO; -ASPI-992 PO; -DOCU100C36 PO; -FAMO20TA80 PO; -Tamsulosin PO
[2022-01-30] MEDS ORDERED: FAMO20TA80 PO (09:52)
[2022-01-30] MEDS ORDERED: Tamsulosin PO (09:52)
[2022-01-30] MEDS ORDERED: DOCU100C36 PO (09:52)
[2022-01-30] MEDS ORDERED: ASPI-992 PO (09:52)
== END 2022-01-23 23:59 | disposition home or self-care (01) ==
LOC: LAB 10:14
PROVIDERS: ATTEND Specialist
DX: Z01.812 Encounter for preprocedural laboratory examination (principal); Z20.822 Contact with and (suspected) exposure to COVID-19
CPT/HCPCS: C9803; U0003

== ENCOUNTER 2022-01-28 05:03 | Inpatient (IN) | payer MEDICARE ==
[2022-01-28] VITALS (13 sets, daily range): BP systolic 130–160; BP diastolic 80–117
[~2022-01-28] VITALS: Ht 172.7 cm; Wt 93.9 kg
--- NOTE | 2022-01-28 05:25 | NUR ---
MS MISSILE FACILITIES REPAIRER NOTES ADMITTED THIS 76 YEARS OLD, MALE PATIENT FROM HOME FOR LEFT KNEE ARTHROPLASTY AND SUBCUTANEOUS LATERAL RELEASE. PATIENT IS AMBULATORY; AWAKE, ALERT AND ORIENTED X 4. BREATHING IS EVEN AND NONLABORED. ON ROOM AIR; TOLERATING WELL. INITIAL VITAL SIGNS TAKEN AND RECORDED FOLLOWS: BP: 171/100 MM HG, CT 67, RR 18, TEMP 97.9, O2 SAT 97%. WITH IV ACCESS ON RIGHT ANTECUBITAL G#20; PATENT, INTACT AND SALINE LOCKED.SKIN ASSESSMENT DONE; INTACT. ABLE TO MAKE NEEDS KNOWN. SAFETY MEASURES IMPLEMENTED: CALL LIGHT AND TABLE WITHIN EASY REACH, SIDE RAILS UP X2, BED IN LOWEST LOCKED POSITION. WILL CONTINUE TO MONITOR
--- NOTE | 2022-01-28 05:38 | NUR ---
RN notes Pt signed the consent for Left total knee arthroplasty. Primary nurse is aware and informed.
[2022-01-28] MEDS ORDERED: BUPIVACAINE 0.5 % PF 150 MG/30 ML VIAL ONE ×2 (05:56→06:29)
[2022-01-28] MEDS ORDERED: POLYMYXIN B SULFATE 500,000 UNITS ONE (05:56)
[2022-01-28] MEDS ORDERED: ANESTHESIA TRAY IN PYXIS 1 EA TRAY MC ONE (05:56)
--- NOTE | 2022-01-28 06:25 | NUR ---
MS RN NOTES PATIENT WAS PICKED UP BY OR TEAM FOR SURGERY.
[2022-01-28] MEDS ORDERED: HYDROMORPHONE INJ 2 MG/ML DISP.SYRIN ONE (06:29)
[2022-01-28] MEDS ORDERED: TRANEXAMIC ACID 3,000 MG in SODIUM CHLORIDE IRRIG SOLUTION 70 ML IR ONE (07:00)
--- NOTE | 2022-01-28 07:26 | NUR ---
RN NOTES RECEIVED REPORT FROM DATA WAREHOUSE ADMINISTRATOR NAVIN LOVELL THAT PT IN THE O.R. RIGHT NOW FOR LEFT TOTAL KNEE ARTHROPLASTY, SUBCUTANEOUS LATERAL RELEASE BY DR LAGUNAS.
[2022-01-28] MEDS ORDERED: HYDROMORPHONE 1 MG/1 ML DISP.SYRIN ONE ×2 (08:37→08:48)
[2022-01-28] MEDS ORDERED: hydrALAZINE HCL IV 20 MG VIAL ONE (08:45)
[2022-01-28] MEDS ORDERED: SENNOSIDES 8.6 MG TABLET PO PRN (09:30)
[2022-01-28] MEDS ORDERED: IV D5/0.45 NACL 1,000 ML IV PRN (09:30)
[2022-01-28] MEDS ORDERED: DOCUSATE SODIUM 250 MG CAPSULE PO PRN (09:30)
[2022-01-28] MEDS ORDERED: HYDROCODONE/APAP 10/325MG TABLET PO ONE (09:30)
[2022-01-28] MEDS ORDERED: BISACODYL SUPP (10 MG) 10 MG/SUPP.RECT SUPP.RECT RC PRN (09:30)
[2022-01-28] MEDS ORDERED: ONDANSETRON HCL/PF 4 MG/2 ML VIAL IVP PRN ×2 (09:30)
[2022-01-28] MEDS ORDERED: ACETAMINOPHEN 325 MG TABLET PO PRN ×2 (09:30)
[2022-01-28] MEDS ORDERED: ZOLPIDEM TARTRATE 5 MG TABLET PO PRN (09:30)
[2022-01-28] MEDS ORDERED: MORPHINE SULFATE INJ 2 MG/ML DISP.SYRIN IV PRN (09:30)
--- NOTE | 2022-01-28 09:30 | NUR ---
RN NOTES PT RETURNED FROM OR, STATUS POST L KNEE ARTHROPLASTY, V/S STABLE, ON 3L OF O2 VIA NC. NO S/S OF SOB, PT COMPLAINED OF PAIN WILL ADMINISTER NARCO. WILL CONTINUE TO MONITOR.
[2022-01-28] MEDS ORDERED: ASPI-1169 PO (09:55)
[2022-01-28] MEDS: HYDROMORPHONE 1 MG/1 ML DISP.SYRIN SQ PRN ×2 (11:44→16:10)
--- NOTE | 2022-01-28 11:44 | NUR ---
RN NOTES PT COMPLAINED OF PAIN /, PRN DILAUDID ADMINISTERED @1144, WILL CONTINUE TO MONITOR.
--- NOTE | 2022-01-28 12:00 | NUR ---
RN NOTES PT REFUSED TO BE REPOSITION IT CAUSES HIM PAIN TO MOVE. WILL CONTINUE TO MONITOR AND KEEP PATIENT CLEAN AND DRY.
[2022-01-28] MEDS: HYDROCODONE/APAP 10/325MG TABLET PO PRN ×3 (13:49→20:27)
--- NOTE | 2022-01-28 13:52 | NUR ---
RN NOTES PT COMPLAINED OF LEFT KNEE PAIN, 7/10 SCALE, PRN NORCO 10/325MG PO ADMINISTERED @1349, WILL CONTINUE TO MONITOR AND REASSESS PT.
--- NOTE | 2022-01-28 13:54 | NUR ---
RN NOTES ASKED PT IF WE CAN DO SKIN ASSESSMENT AND TAKE PHOTOS OF SKIN ISSUES BUT HE REFUSED. WILL ENDORSE.
[2022-01-28] MEDS ORDERED: diphenhydrAMINE HCL 25 MG CAPSULE PO PRN (15:00)
[2022-01-28] MEDS ORDERED: MAG HYDROX/AL HYDROX/SIMETH 30 ML UDC PO PRN (15:00)
[2022-01-28] MEDS: ANCEF 1 GM/50 ML D5W IV SCH ×4 (15:11→22:05)
[2022-01-28] MEDS ORDERED: POTASSIUM CHLORIDE 10 MEQ TABLET.SA PO SCH (17:00)
[2022-01-28] MEDS: CARVEDILOL 12.5 MG TABLET PO SCH (17:11)
[2022-01-28] MEDS: DOCUSATE SODIUM 100 MG CAPSULE PO SCH (17:11)
--- NOTE | 2022-01-28 17:12 | NUR ---
RN NOTES PATIENT COMPLAINED OF PAIN 01/18, PRN NARCO GIVEN @[phone], WILL CONTINUE TO MONITOR.
--- NOTE | 2022-01-28 18:40 | NUR ---
MS CLOSING NOTES PATIENT RESTING IN BED WATCHING TV. STABLE ON 3L O2 VIA NC. PATIENT POST OP L KNEE ARTHROPLASTY. PATIENT TITRATED DOWN TO 2L, STABLE 97%. NO S/S OF SOB AND NO C/O OF RESPIRATORY DISTRESS. PAIN MANAGEMENT CONSULT COMPLETED BY DR. PERLA TO ADMINISTER NARCO Q3HR FOR FIRST 2 DAYS. SURGERY SITE L KNEE DRESSING INTACT, NO DRAINAGE NOTED. PATIENT USES URINAL, 730 OUTPUT, VOIDED FOUR TIMES DURING THE SHIFT. SAFETY MEASURES MAINTAINED: BED AT LOW POSITION, BREAKS LOCKED, SIDE RAILS UP X3, HOB ELEVATED AND CALL LIGHT WITHIN REACH. WILL ENDORSE TO NEXT SHIFT ANY OBDULIA.
--- NOTE | 2022-01-28 19:31 | NUR ---
MS RN OPENING NOTES PATIENT RECEIVED RESTING IN BED COMFORTABLY; A/OX4, BREATHING EVEN AND UNLABORED; ON 2LPM VIA NC, NO SOB NOTED; PATIENT ABLE TO MAKE NEEDS KNOWN; PER AM SHIFT, DR. PERLA ORDERED NORCO Q3HOUR FOR PAIN; WILL FOLLOW MD ORDER; RAC # 20 G INTACT AND PATENT, FLUSHING WELL; SAFETY PRECAUTIONS IMPLEMENTED; BED LOCKED IN LOW POSITION; SIDE RAILSX2; CALL LIGHT WITHIN REACH; WILL CONT PLAN OF CARE
[2022-01-28] MEDS: FAMOTIDINE (20 MG) 20 MG TABLET PO SCH (20:27)
[2022-01-28] MEDS: ATORVASTATIN 10 MG TABLET PO SCH (21:25)
[2022-01-28] MEDS: TAMSULOSIN 0.4 MG CAP.SR.24H PO SCH (21:26)
--- NOTE | 2022-01-28 23:27 | NUR ---
MS RN NOTE Q3HOUR DESMOND PER DR. PERLA NON-ADMIN; PATIENT ASLEEP. PER PATIENT, HE WISHES HE GETS SOME REST TONIGHT. CHARGE NURSE AWARE
--- NOTE | 2022-01-29 00:47 | NUR ---
MS RN NOTE PATIENT REQUESTING NORCO FOR PAIN MANAGEMENT NOW; PATIENT STATED HE WAS GRATEFUL HE WAS ABLE TO GET SOME REST; PATIENT VERBALIZED HE DID NOT WANT TO BE WOKEN UP IF PAIN MED WAS DUE. CHARGE NURSE AWARE; WILL INFORM AM SHIFT; VSS; ADMINISTERED PAIN MANAGEMENT PER MD ORDER; WILL MONITOR
[2022-01-29] MEDS: HYDROCODONE/APAP 10/325MG TABLET PO PRN ×6 (01:40→20:01)
--- NOTE | 2022-01-29 05:44 | NUR ---
MS NOTE PATIENT CHANGED HIS MIND AND WOULD LIKE TO BE WOKEN UP IF NORCO Q3HOUR PAIN MEDICATION IS DUE. CHARGE NURSE MADE AWARE; WILL INFORM ONCOMING SHIFT
[2022-01-29] MEDS: HYDROMORPHONE 1 MG/1 ML DISP.SYRIN SQ PRN ×2 (06:33→10:38)
[2022-01-29 06:35] LABS: BASOPHILS % (AUTO) 0.1 % (0.0-2.0); HEMATOCRIT 42 % (39-51); HEMOGLOBIN 14.3 g/dL (13.5-17.5); LYMPHOCYTES # (AUTO) 0.8 K/uL (0.8-4.8); LYMPHOCYTES % (AUTO) 7.2 % (20.0-44.0); MEAN CORPUSCULAR HGB CONC 34 g/dl (31.0-36.0); MEAN CORPUSCULAR VOLUME 97 fL (80-96); MONOCYTES # (AUTO) 0.9 K/uL (0.1-1.30); MONOCYTES % (AUTO) 7.7 % (2.0-12.0); NEUTROPHILS # (AUTO) 9.9 K/uL (1.8-8.9); PLATELET COUNT (AUTO) 89 K/uL (150-450); RED BLOOD CELL COUNT(AUTO) 4.29 MIL/uL (4.5-6.0); WHITE BLOOD COUNT (AUTO) 11.6 K/uL (4.3-11.0)
[2022-01-29 07:16] LABS: ALANINE AMINOTRANSFERASE 22 U/L (12-78); ALBUMIN 3.3 g/dL (3.4-5.0); ALKALINE PHOSPHATASE 75 U/L (46-116); ASPARTATE AMINOTRANSFERASE 20 U/L (15-37); BILIRUBIN,TOTAL 1.7 mg/dL (0.2-1.0); CALCIUM, SERUM 8.5 mg/dL (8.5-10.1); CARBON DIOXIDE 26 mmol/L (21-32); CHLORIDE 105 mmol/L (98-107); GLUCOSE 133 mg/dL (74-106); MAGNESIUM 2.3 mg/dL (1.8-2.4); PHOSPHORUS 3.5 mg/dL (2.5-4.9); POTASSIUM 4.5 mmol/L (3.5-5.1); SODIUM SERUM 138 mmol/L (136-145); TOTAL PROTEIN, SERUM 6.5 g/dL (6.4-8.2); UREA NITROGEN, BLOOD 24 mg/dL (7-18)
--- NOTE | 2022-01-29 07:41 | NUR ---
MS RN CLOSING NOTES PATIENT RECEIVED RESTING IN BED COMFORTABLY; A/OX4, BREATHING EVEN AND UNLABORED; ON 2LPM VIA NC, NO SOB NOTED; PATIENT ABLE TO MAKE NEEDS KNOWN; PER DR. PERLA, PAIN MEDICATION ENCOURAGED TO BE GIVEN IF NEEDED AND DUE; CLARIFIED WITH ONCOMING NURSE; RAC # 20 G INTACT AND PATENT, FLUSHING WELL; ALL NEEDS RENDERED; SAFETY PRECAUTIONS IMPLEMENTED; BED LOCKED IN LOW POSITION; SIDE RAILSX2; CALL LIGHT WITHIN REACH; WILL ENDORSE OBDULIA TO ONCOMING SHIFT
[2022-01-29 08:00] VITALS: BP 119/69
--- NOTE | 2022-01-29 08:03 | NUR ---
RN OPENING NOTE PATIENT AWAKE IN BED RESTING, A/O X 4. NO S/S OF PAIN NOTED AT THIS TIME. ON 2L OXYGEN NO DISTRESS OR SHORTNESS OF BREATH NOTED. IV ACCESS RAC #20G, INTACT, PATENT AND FLUSHING WELL. FALL AND SAFETY MEASURES IN PLACE, BED IN LOW AND LOCK POSITION, CALL LIGHT AND TABLE WITHIN EASY REACH, SIDE RAILS UP X2. WILL CONTINUE TO MONITOR.
[2022-01-29] MEDS: ASPIRIN 325 MG TABLET PO SCH (08:45)
[2022-01-29] MEDS: CARVEDILOL 12.5 MG TABLET PO SCH ×2 (08:46→16:21)
[2022-01-29] MEDS: FAMOTIDINE (20 MG) 20 MG TABLET PO SCH ×2 (08:46→21:45)
[2022-01-29] MEDS: DOCUSATE SODIUM 100 MG CAPSULE PO SCH ×2 (08:46→16:20)
[2022-01-29] MEDS: BUMETANIDE (1 MG) 1 MG TABLET PO SCH (08:46)
[2022-01-29 16:00] VITALS: BP 168/78
--- NOTE | 2022-01-29 19:30 | NUR ---
RN OPENING NOTE PATIENT AWAKE IN BED, A/O X 4. ABLE TO MAKE NEEDS KNOWN. PATIENT REPORTS PAIN 7/10, WILL MANAGE PAIN APPROPRIATELY. ON ROOM AIR, NO DISTRESS OR SHORTNESS OF BREATH NOTED. IV ACCESS RAC 20G, INTACT, PATENT AND FLUSHING WELL. LEFT LE PIEDAD WRAPPED AND CPM MACHINE ON. FALL AND SAFETY MEASURES IN PLACE, BED IN LOW AND LOCK POSITION, CALL LIGHT WITHIN EASY REACH, SIDE RAILS UP. WILL MONITOR PATIENT CLOSELY.
--- NOTE | 2022-01-29 19:49 | NUR ---
RN CLOSING NOTE PATIENT AWAKE IN BED RESTING, A/O X 4. NO S/S OF PAIN NOTED AT THIS TIME. ON ROOM AIR, NO DISTRESS OR SHORTNESS OF BREATH NOTED. IV ACCESS RAC #20G, INTACT, PATENT AND FLUSHING WELL. FALL AND SAFETY MEASURES IN PLACE, BED IN LOW AND LOCK POSITION, CALL LIGHT AND TABLE WITHIN EASY REACH, SIDE RAILS UP X2. WILL ENDORSE TO PULL TAB DEALER.
[2022-01-29 20:00] VITALS: BP 155/80
--- NOTE | 2022-01-29 20:01 | NUR ---
NORCO 10-325 ADMINISTERED FOR PAIN ON L KNEE 02/17. WILL REASSESS AT A LATER TIME.
[2022-01-29] MEDS: ATORVASTATIN 10 MG TABLET PO SCH (21:45)
[2022-01-29] MEDS: TAMSULOSIN 0.4 MG CAP.SR.24H PO SCH (21:45)
[2022-01-30] MEDS: HYDROCODONE/APAP 10/325MG TABLET PO PRN ×4 (02:10→13:34)
--- NOTE | 2022-01-30 02:13 | NUR ---
NORCO 10-325 GIVEN FOR PAIN ON L KNEE 02/17. WILL REASSESS AT A LATER TIME.
[2022-01-30 06:34] LABS: BASOPHILS % (AUTO) 0.2 % (0.0-2.0); EOSINOPHILS % (AUTO) 0.2 % (0.0-6.0); HEMATOCRIT 40 % (39-51); HEMOGLOBIN 13.7 g/dL (13.5-17.5); LYMPHOCYTES # (AUTO) 1.3 K/uL (0.8-4.8); LYMPHOCYTES % (AUTO) 13.2 % (20.0-44.0); MEAN CORPUSCULAR HGB CONC 34 g/dl (31.0-36.0); MEAN CORPUSCULAR VOLUME 97 fL (80-96); MONOCYTES # (AUTO) 1.1 K/uL (0.1-1.30); MONOCYTES % (AUTO) 10.8 % (2.0-12.0); NEUTROPHILS # (AUTO) 7.4 K/uL (1.8-8.9); NEUTROPHILS % (AUTO) 75.6 % (43.0-81.0); PLATELET COUNT (AUTO) 71 K/uL (150-450); RED BLOOD CELL COUNT(AUTO) 4.17 MIL/uL (4.5-6.0); WHITE BLOOD COUNT (AUTO) 9.8 K/uL (4.3-11.0)
--- NOTE | 2022-01-30 06:42 | NUR ---
RN CLOSING NOTE PATIENT AWAKE IN BED, A/O X 4. ABLE TO MAKE NEEDS KNOWN. ON ROOM AIR, NO DISTRESS OR SHORTNESS OF BREATH NOTED. IV ACCESS RAC 20G, INTACT, PATENT AND FLUSHING WELL. LEFT LE PIEDAD WRAPPED. PAIN ON LLE MANAGED WITH NORCO X 3, PATIENT SEEN BY DR. PERLA AT BEDSIDE. FALL AND SAFETY MEASURES IN PLACE, BED IN LOW AND LOCK POSITION, CALL LIGHT WITHIN EASY REACH, SIDE RAILS UP. ALL NEEDS MET AND ATTENDED. ALL ORDERS CARRIED OUT. WILL ENDORSE TO DAY SHIFT NURSE FOR OBDULIA.
[2022-01-30 07:11] LABS: CALCIUM, SERUM 8.4 mg/dL (8.5-10.1); CARBON DIOXIDE 27 mmol/L (21-32); CHLORIDE 105 mmol/L (98-107); CREATININE 0.8 mg/dL (0.6-1.3); GLUCOSE 104 mg/dL (74-106); MAGNESIUM 2.1 mg/dL (1.8-2.4); PHOSPHORUS 2.7 mg/dL (2.5-4.9); POTASSIUM 4.3 mmol/L (3.5-5.1); SODIUM SERUM 141 mmol/L (136-145); UREA NITROGEN, BLOOD 23 mg/dL (7-18)
--- NOTE | 2022-01-30 07:55 | NUR ---
RN OPENING NOTE PATIENT AWAKE IN BED RESTING, A/O X 4. NO S/S OF PAIN NOTED AT THIS TIME. ON ROOM AIR, NO DISTRESS OR SHORTNESS OF BREATH NOTED. IV ACCESS RAC #20G, INTACT, PATENT AND FLUSHING WELL. FALL AND SAFETY MEASURES IN PLACE, BED ALARM ON, BED IN LOW AND LOCK POSITION, CALL LIGHT AND TABLE WITHIN EASY REACH, SIDE RAILS UP X2. WILL CONTINUE TO MONITOR.
[2022-01-30] MEDS ORDERED: AMIODARONE HCL 200 MG TABLET PO SCH (09:00)
[2022-01-30] MEDS: DOCUSATE SODIUM 100 MG CAPSULE PO SCH (09:01)
[2022-01-30] MEDS: FAMOTIDINE (20 MG) 20 MG TABLET PO SCH (09:01)
[2022-01-30] MEDS: CARVEDILOL 12.5 MG TABLET PO SCH (09:02)
[2022-01-30 09:03] VITALS: BP 124/73
[2022-01-30] MEDS: BUMETANIDE (1 MG) 1 MG TABLET PO SCH (09:03)
[2022-01-30] MEDS: ASPIRIN 325 MG TABLET PO SCH (09:03)
[2022-01-30] MEDS ORDERED: DOCU100C36 PO (09:52)
[2022-01-30] MEDS ORDERED: Tamsulosin PO (09:52)
[2022-01-30] MEDS ORDERED: FAMO20TA80 PO (09:52)
[2022-01-30] MEDS ORDERED: ASPI-992 PO (09:52)
[2022-01-30 12:44] LABS: BAND % (MANUAL) 2 % (0.0-5.0); EOSINOPHILS % (MANUAL) 2 % (0-4); LYMPHOCYTES % (MANUAL) 12 % (16-48); MONOCYTES % (MANUAL) 7 % (0-11.0); NEUTROPHILS % (MANUAL) 77 (42-76)
--- NOTE | 2022-01-30 14:00 | NUR ---
DIRECTOR OF STUDENT FINANCIAL SERVICES NOTE PATIENT DISCHARGE IN MEDICAL STABLE CONDITION. A/O X4. V/S TAKEN, STABLE RECORDED. NO IV ACCESS. PATIENT REFUSED SKIN ASSESSMENT, PATIENT DID NOT WANT TO REMOVED PIEDAD WRAP TO TAKE PICTURES OF LEFT KNEE. NAME ARM BAND REMOVED. ALL BELONGINGS CHECKED AND SIGNED. HEALTH TEACHING AND DISCHARGE INSTRUCTIONS GIVEN AND VERBALIZED UNDERSTANDING. PATIENT LEFT UNIT VIA WHEELCHAIR WITH NO SIGNS OF DISTRESS, ACCOMPANIED BY RN TO THE LOBBY. CHARGE NURSE AWARE OF DISCHARGE.
== END 2022-01-30 14:00 | disposition home health service (06) | DRG 470 ==
LOC: DS 05:03 → MED 05:04
PROVIDERS: ADMIT Internal Medicine; ATTEND Nurse Practitioner Acute Care
PROC: 0SRD0J9 Replacement of Left Knee Joint with Synthetic Substitute, Cemented, Open Approach (ICD-10-PCS; principal; 2022-01-28)
DX: M17.12 Unilateral primary osteoarthritis, left knee (principal); I42.0 Dilated cardiomyopathy; N17.9 Acute kidney failure, unspecified; Z20.822 Contact with and (suspected) exposure to COVID-19; I11.0 Hypertensive heart disease with heart failure; I50.9 Heart failure, unspecified; I87.309 Chronic venous hypertension (idiopathic) without complications of unspecified lower extremity; I48.0 Paroxysmal atrial fibrillation; E78.00 Pure hypercholesterolemia, unspecified; D72.829 Elevated white blood cell count, unspecified; Z79.82 Long term (current) use of aspirin; G89.29 Other chronic pain; E66.9 Obesity, unspecified; Z68.31 Body mass index [BMI] 31.0-31.9, adult
CPT/HCPCS: 36415; 71045-TC; 80048-TC; 80053-TC; 82962-TC; 83735-TC; 84100-TC; 85025-TC; 87081-TC; 94799-TC; 97116-TC; 97530-TC; 97760-TC; A4217; C1713; C1776; C9803; G0378; J0360; J0690; J1100; J1170; J1885; J2405; J2704; J3490; J7030; J7042; J7060; L1830; U0003

== ENCOUNTER 2022-02-05 14:28 | Emergency (ER) | payer MEDICARE ==
[~2022-02-05] VITALS: Ht 172.7 cm; Wt 90.7 kg
[~2022-02-05 14:28] MED LIST changes: +ASPI-992 PO; +DOCU100C36 PO; +FAMO20TA80 PO; -POTA-10 PO; +Tamsulosin PO
--- NOTE | 2022-02-05 15:00 | NUR ---
initial contact, pt c/o pain in LLE, shows s/s of possible blood clot, Ultra sound ordered
[2022-02-05 15:08] VITALS: BP 188/85
--- NOTE | 2022-02-05 15:10 | NUR ---
pt stated, " i have made arrangements with my primary Md and i will leave and get my Ultra Sound across the street for an appt his primary Md made at 1530 for today." Left AMA educated and advised of consequences, was stable, ambulated out of hospital with walker and stated son was out side to give ride to appt across the street, safe transfer out of hospital to family vehicle
== END 2022-02-05 15:09 | disposition left against medical advice (07) ==
LOC: ER 14:49
DX: R60.0 Localized edema (principal); Z96.653 Presence of artificial knee joint, bilateral; Z79.899 Other long term (current) drug therapy

== ENCOUNTER → 2022-03-08 | Outpatient (CLI) | payer MEDICARE | END | disposition home or self-care (01) | LOC: LAB 05:05 | PROVIDERS: ATTEND Anesthesiology | DX: Z01.812 Encounter for preprocedural laboratory examination (principal); Z20.822 Contact with and (suspected) exposure to COVID-19 | CPT/HCPCS: U0003; C9803 ==

== ENCOUNTER 2022-03-14 07:33 | Day surgery (SDC) | payer MEDICARE ==
[~2022-03-14 07:33] MED LIST changes: +ANESTHESIA TRAY IN PYXIS 1 EA TRAY MC ONE
--- NOTE | 2022-03-14 08:00 | NUR ---
ADMITTING NOTES: ADMITTED A 76YO MALE PT AMBULATORY. A/O X 4 AND ABLE TO VERBALIZED NEEDS. NO SOB OR CARDIAC DISTRESS NOTED. ON ROOM AIR AND TOLERATING WELL. PATIENT IS FOR LUMBAR L3-4 L4-5 FACET JOINT INJECTION. PATIENT ON NPO SINCE LAST NIGHT LAST INTAKE 03/13/2022 10PM. PATIENT SIGNED ALL CONSENTS. CHECK LIST DONE. VS TAKEN WNL. INSERTED IV ACCESS ON RIGHT AC G#20 IV LR @ 50ML/HR. PT CHANGED TO HOSPITAL GOWN, REMAINED IN BED RESTED AND COMFORTABLE. @0830AM PT WAS PICKED UP BY NURSES AND TRANSPORTER VIA BED. PT LEFT STABLE IN THE UNIT.
[2022-03-14] MEDS ORDERED: FENTANYL PF 100MCG/2ML AMPUL ONE (08:53)
[2022-03-14] MEDS ORDERED: PROPOFOL 20 ML IV ONE (08:53)
[2022-03-14] MEDS ORDERED: LIDOCAINE 1% INJ 50 ML MDV IJ ONE (08:55)
[2022-03-14] MEDS ORDERED: methylPREDNISolone ACETATE 80 MG/ML VIAL ONE (08:55)
[2022-03-14] MEDS ORDERED: IOHEXOL 240MG/ML 50 ML IV ONE ×2 (08:55→14:59)
[2022-03-14] MEDS ORDERED: BUPIVACAINE 0.25% 75 MG/30 ML VIAL ONE (08:56)
--- NOTE | 2022-03-14 10:30 | NUR ---
RN NOTES: PT DISCHARGED AFTER LUMBAR L3-4 L4-5 FACET JOINT INJECTION. NOTED WITH BANDAGE ON THE BACK PATENT AND INTACT WITH NO DISCHARGES. INSTRUCTED PT THAT HE CAN GO HOME AND MAY RESUME HOME MEDS. FOLLOW UP TO PCP INSTRUUCTED GO TO NEAREST HOSP IN CASE OF EMERGENCY OR CALL 911. VS WNL. REMOVED IV ACCES AND CUT HIS IDENTIFICATION BAND. BELONGING LIST SIGNED, ALL BELONGINGS CARRIED WITH THE PT. PT DC ACCOMPANIED BY . PT AMBULATORY. LEFT TYHE UNIT STABLE.
[2022-03-14] MEDS ORDERED: ANESTHESIA TRAY IN PYXIS 1 EA TRAY MC ONE (15:03)
== END 2022-03-14 10:30 | disposition home or self-care (01) ==
LOC: DS 07:33 → UNDOADMIN 07:38 → MED 07:38 → DS 10:30 → UNDODISIN 10:30
PROVIDERS: ATTEND Anesthesiology
DX: M54.50 Low back pain, unspecified (principal); M47.26 Other spondylosis with radiculopathy, lumbar region; I10 Essential (primary) hypertension; E66.3 Overweight; G62.9 Polyneuropathy, unspecified; M47.816 Spondylosis without myelopathy or radiculopathy, lumbar region; Z98.890 Other specified postprocedural states; Z79.899 Other long term (current) drug therapy
CPT/HCPCS: 64493; 72020; 64494; J1040; J2704 ×2; J3010; J3490 ×2; J7120; J7030; A6402; Q9966 ×2; G0378

== ENCOUNTER 2022-03-19 10:45 | Outpatient (CLI) | payer MEDICARE ==
[~2022-03-19 10:45] MED LIST changes: -ANESTHESIA TRAY IN PYXIS 1 EA TRAY MC ONE; -BUME1TAB8 PO; -DOCU100C36 PO; -FAMO20TA80 PO; -Tamsulosin PO
== END 2022-03-19 23:59 | disposition home or self-care (01) ==
LOC: MSC 10:45
PROVIDERS: ATTEND Anesthesiology
DX: M48.061 Spinal stenosis, lumbar region without neurogenic claudication (principal); M46.96 Unspecified inflammatory spondylopathy, lumbar region; M51.36 Other intervertebral disc degeneration, lumbar region; M47.816 Spondylosis without myelopathy or radiculopathy, lumbar region; M62.830 Muscle spasm of back; M53.3 Sacrococcygeal disorders, not elsewhere classified; M25.9 Joint disorder, unspecified; M17.0 Bilateral primary osteoarthritis of knee; M70.61 Trochanteric bursitis, right hip; M70.62 Trochanteric bursitis, left hip; M76.31 Iliotibial band syndrome, right leg; M76.32 Iliotibial band syndrome, left leg; Z79.891 Long term (current) use of opiate analgesic

== ENCOUNTER 2022-05-07 08:53 | Outpatient (CLI) | payer MEDICARE | END 2022-05-07 23:59 | disposition home or self-care (01) | LOC: LAB 08:53 | PROVIDERS: ATTEND Anesthesiology | DX: Z01.812 Encounter for preprocedural laboratory examination (principal); Z20.822 Contact with and (suspected) exposure to COVID-19 | CPT/HCPCS: U0003; C9803 ==

== ENCOUNTER → 2022-05-07 | Outpatient (CLI) | payer MEDICARE | END | disposition home or self-care (01) | LOC: MSC 09:45 | PROVIDERS: ATTEND Anesthesiology | DX: M17.0 Bilateral primary osteoarthritis of knee (principal); M70.61 Trochanteric bursitis, right hip; M70.62 Trochanteric bursitis, left hip; M76.31 Iliotibial band syndrome, right leg; M76.32 Iliotibial band syndrome, left leg; M25.9 Joint disorder, unspecified; M46.96 Unspecified inflammatory spondylopathy, lumbar region; M51.36 Other intervertebral disc degeneration, lumbar region; M48.061 Spinal stenosis, lumbar region without neurogenic claudication; M53.3 Sacrococcygeal disorders, not elsewhere classified; M62.830 Muscle spasm of back; Z79.891 Long term (current) use of opiate analgesic; Z79.1 Long term (current) use of non-steroidal anti-inflammatories (NSAID) ==

== ENCOUNTER 2022-05-13 11:22 | Day surgery (SDC) | payer MEDICARE ==
[2022-05-13 11:30] VITALS: BP 166/96
--- NOTE | 2022-05-13 11:30 | NUR ---
DAY SURGERY RECEIVED PT IN DAY SURGERY, A/OX4, AMBULATORY, ON RA, STABLE, PREOP CHECK LIST DONE, VSS STABLE CONTINUE TO MONITOR.
[2022-05-13] MEDS ORDERED: BUPIVACAINE 0.25% 75 MG/30 ML VIAL ONE (12:41)
[2022-05-13] MEDS ORDERED: methylPREDNISolone ACETATE 80 MG/ML VIAL ONE (12:41)
[2022-05-13] MEDS ORDERED: LIDOCAINE 1% INJ 50 ML MDV IJ ONE (12:41)
--- NOTE | 2022-05-13 13:20 | NUR ---
DAY SURGERY RECEIVED FROM PACU , VSS STABLE , PT DENIES ANY DISTRESS, MAY GO HOME PER MD ORDER
[2022-05-13 13:24] VITALS: BP 158/94
--- NOTE | 2022-05-13 13:38 | NUR ---
DISCHARGE INSTRUCTION GIVEN TO PT , VERBALIZES UNDERSTANDING , IV D/STACIE, PT LEFT THE FLOOR AMBULATORY ACCOMPANIED BY STAFF MEMBER IN STABLE CONDITION.
== END 2022-05-13 13:38 | disposition home or self-care (01) ==
LOC: DS 11:22
PROVIDERS: ATTEND Anesthesiology
DX: M17.11 Unilateral primary osteoarthritis, right knee (principal); I10 Essential (primary) hypertension; Z98.890 Other specified postprocedural states; Z79.899 Other long term (current) drug therapy
CPT/HCPCS: 73501; 27369; 73560; 77002; J1040; J2704; J3490 ×2; J7030; A6209

== ENCOUNTER 2022-06-04 09:24 | Outpatient (CLI) | payer MEDICARE | END 2022-06-04 23:59 | disposition home or self-care (01) | LOC: MSC 09:24 | PROVIDERS: ATTEND Anesthesiology | DX: M48.061 Spinal stenosis, lumbar region without neurogenic claudication (principal); M51.36 Other intervertebral disc degeneration, lumbar region; M47.816 Spondylosis without myelopathy or radiculopathy, lumbar region; M47.817 Spondylosis without myelopathy or radiculopathy, lumbosacral region; M62.830 Muscle spasm of back; M53.3 Sacrococcygeal disorders, not elsewhere classified; M17.0 Bilateral primary osteoarthritis of knee; M76.32 Iliotibial band syndrome, left leg; M76.31 Iliotibial band syndrome, right leg; M70.61 Trochanteric bursitis, right hip; M70.62 Trochanteric bursitis, left hip; M25.9 Joint disorder, unspecified; Z79.891 Long term (current) use of opiate analgesic; Z79.1 Long term (current) use of non-steroidal anti-inflammatories (NSAID) ==

== ENCOUNTER 2022-06-07 08:02 | Outpatient (CLI) | payer MEDICARE | END 2022-06-07 23:59 | disposition home or self-care (01) | LOC: RAD 08:02 | PROVIDERS: ATTEND Specialist | DX: Z01.818 Encounter for other preprocedural examination (principal); I51.7 Cardiomegaly; R07.9 Chest pain, unspecified; M17.11 Unilateral primary osteoarthritis, right knee | CPT/HCPCS: 71045-TC ==

== ENCOUNTER 2022-06-11 07:33 | Outpatient (CLI) | payer MEDICARE | END 2022-06-11 23:59 | disposition home or self-care (01) | LOC: LAB 07:33 | PROVIDERS: ATTEND Specialist | DX: Z01.812 Encounter for preprocedural laboratory examination (principal); Z20.822 Contact with and (suspected) exposure to COVID-19 | CPT/HCPCS: U0003; C9803 ==

== ENCOUNTER 2022-06-17 06:30 | Inpatient (IN) | payer MEDICARE ==
[~2022-06-17] VITALS: Ht 172.7 cm; Wt 90.7 kg
--- NOTE | 2022-06-17 05:25 | NUR ---
RN NOTES PATIENT RECEIVED AMBULATORY ACCOMPANIED BY . ADMITTED FOR DAY SURGERY: RIGHT KNEE OSTEOARTHRITIS. PROCEDURE TO BE DONE: RIGHT TOTAL KNEE ARTHROPLASTY. VITAL SIGNS TAKEN, STABLE ON ROOM AIR, BREATHING EVENLY AND UNLABORED. IV ACCESS LEFT AC #20, SALINE LOCKED. PATENT AND INTACT. ORIENTED TO ROOM SET-UP. ACCOMPLISHED CHECKLIST OF PT'S BELONGINGS. SIGNED INFORMED CONSENT FOR SURGERY AND ANESTHESIA, BLOOD TRANSFUSION CONSENT SIGNED. SAFETY PRECAUTIONS INITIATED, SIDE RAILS UP, BED LOWERED AND LOCKED. CALL LIGHT WITHIN REACH. KEPT COMFORTABLE. Addendum: 06/17/22 at 0632 by JENNIFER BROWN RN TRANSPORTED TO OR BY OR CHIEF GAUGER AND WINDOWS MOBILE DEVELOPER.
--- NOTE | 2022-06-17 06:13 | NUR ---
WING COMMANDER NOTES PATIENT'S , BRANDAN GUILLEN, CONTACT IS [phone].
[~2022-06-17 06:30] MED LIST changes: +ANESTHESIA TRAY IN PYXIS 1 EA TRAY MC ONE; +BUPIVACAINE 0.5 % PF 150 MG/30 ML VIAL ONE; +HYDROMORPHONE INJ 2 MG/ML DISP.SYRIN ONE; +POLYMYXIN B SULFATE 500,000 UNITS ONE; +TRANEXAMIC ACID 3,000 MG in SODIUM CHLORIDE IRRIG SOLUTION 70 ML IR ONE
[2022-06-17] MEDS ORDERED: HYDROMORPHONE 1 MG/1 ML DISP.SYRIN ONE ×2 (08:49→09:06)
[2022-06-17 09:00] VITALS: BP 169/112
[2022-06-17] MEDS ORDERED: MAG HYDROX/AL HYDROX/SIMETH 30 ML UDC PO PRN (09:30)
[2022-06-17] MEDS ORDERED: BISACODYL SUPP (10 MG) 10 MG/SUPP.RECT SUPP.RECT RC PRN (09:30)
[2022-06-17] MEDS ORDERED: IV D5/0.45 NACL 1,000 ML IV PRN (09:30)
[2022-06-17] MEDS ORDERED: diphenhydrAMINE HCL 25 MG CAPSULE PO PRN (09:30)
[2022-06-17] MEDS ORDERED: ZOLPIDEM TARTRATE 5 MG TABLET PO PRN (09:30)
[2022-06-17] MEDS ORDERED: SENNOSIDES 8.6 MG TABLET PO PRN (09:30)
[2022-06-17] MEDS ORDERED: ONDANSETRON HCL/PF 4 MG/2 ML VIAL IVP PRN (09:30)
--- NOTE | 2022-06-17 09:35 | NUR ---
RN NOTE- PT RETURNED FROM SURGICAL SUITE RT KNEE ARTHROPLASTY. VS STABLE, AOX4, MILD PAIN STATED , RECENTLY RX W DILAUDID IN SURGERY. IV FLUIDS D51/2NS AT 125/HR INITIATED AT THIS TIME. PT VOIDED IN URINAL. DRESSING DRY INTACT AND CLEAN TO RT KNEE AREA. ICE PACKS IN PLACE. MONITOR / ASSIST
[2022-06-17] MEDS: DOCUSATE SODIUM 100 MG CAPSULE PO SCH ×2 (09:50→16:46)
[2022-06-17] MEDS: FAMOTIDINE (20 MG) 20 MG TABLET PO SCH ×2 (09:50→21:00)
[2022-06-17] MEDS: oxyCODONE IR immediate release 5 MG PO PRN ×4 (10:05→20:50)
[2022-06-17 10:32] VITALS: BP 154/99
[2022-06-17] MEDS: HYDROMORPHONE 1 MG/1 ML DISP.SYRIN SQ PRN (11:45)
[2022-06-17] MEDS ORDERED: ANESTHESIA TRAY IN PYXIS 1 EA TRAY MC ONE (13:13)
[2022-06-17] MEDS: ANCEF 1 GM/50 ML D5W IV SCH ×4 (15:31→23:29)
[2022-06-17 16:59] VITALS: BP 157/100
[2022-06-17] MEDS ORDERED: POTA10TA10 PO (17:42)
[2022-06-17] MEDS ORDERED: BUME1TAB8 PO (17:42)
[2022-06-17] MEDS ORDERED: ASPI-1169 PO (17:42)
[2022-06-17 18:39] LABS: HEMATOCRIT 41 % (39-51); HEMOGLOBIN 13.6 g/dL (13.5-17.5); LYMPHOCYTES # (AUTO) 0.6 K/uL (0.8-4.8); LYMPHOCYTES % (AUTO) 5.7 % (20.0-44.0); MEAN CORPUSCULAR HGB CONC 34 g/dl (31.0-36.0); MEAN CORPUSCULAR VOLUME 98 fL (80-96); MONOCYTES # (AUTO) 0.5 K/uL (0.1-1.30); MONOCYTES % (AUTO) 5.4 % (2.0-12.0); NEUTROPHILS # (AUTO) 8.8 K/uL (1.8-8.9); NEUTROPHILS % (AUTO) 88.9 % (43.0-81.0); PLATELET COUNT (AUTO) 168 K/uL (150-450); RED BLOOD CELL COUNT(AUTO) 4.13 MIL/uL (4.5-6.0); WHITE BLOOD COUNT (AUTO) 9.9 K/uL (4.3-11.0)
--- NOTE | 2022-06-17 18:55 | NUR ---
RN CLOSING NOTE- PT AWAKE IN BED INTERACTIVE PAIN CONTROLLED W OXY IR 10 MG Q3H. PT VOIDING IN URINAL, PO INTAKE GOOD, DRESSING TO RT KNEE DRY INTACT (MD CHANGE ONLY), IVF D51/2NS AT 50/HR. ALL NEEDS ATTENDED. SIDE RAILS UP, BED LOCKED, CALL LIGHT IN REACH. MONITOR ASSIST PRN
[2022-06-17 19:07] LABS: CALCIUM, SERUM 8.4 mg/dL (8.5-10.1); CREATININE 1.2 mg/dL (0.6-1.3); MAGNESIUM 1.9 mg/dL (1.8-2.4); PHOSPHORUS 3.4 mg/dL (2.5-4.9); POTASSIUM 4.2 mmol/L (3.5-5.1)
[2022-06-17 20:00] VITALS: BP 142/80
[2022-06-17] MEDS: CARVEDILOL 12.5 MG TABLET PO SCH (21:25)
[2022-06-17] MEDS: ATORVASTATIN 10 MG TABLET PO SCH (21:26)
[2022-06-17] MEDS: TAMSULOSIN 0.4 MG CAP.SR.24H PO SCH (21:26)
[2022-06-17] MEDS ORDERED: ATORVASTATIN 10 MG TABLET PO SCH (22:00)
[2022-06-17] MEDS: ZOLPIDEM TARTRATE 5 MG TABLET PO PRN (22:23)
[2022-06-18] MEDS: oxyCODONE IR immediate release 5 MG PO PRN ×3 (06:17→17:58)
[2022-06-18 07:00] VITALS: BP 144/87
--- NOTE | 2022-06-18 07:38 | NUR ---
noc rn closing report given to NAVIN Rodgers for continuity of patient care.
[2022-06-18] MEDS ORDERED: ASPIRIN 81 MG TAB.CHEW PO SCH (09:00)
[2022-06-18] MEDS ORDERED: BUMETANIDE (1 MG) 1 MG TABLET PO SCH (09:00)
[2022-06-18] MEDS ORDERED: POTASSIUM CHLORIDE 10 MEQ TABLET.SA PO SCH (09:00)
[2022-06-18] MEDS ORDERED: AMIODARONE HCL 200 MG TABLET PO SCH (09:00)
[2022-06-18] MEDS: FAMOTIDINE (20 MG) 20 MG TABLET PO SCH ×2 (09:12→21:00)
[2022-06-18] MEDS: ASPIRIN 325 MG TABLET PO SCH (09:12)
[2022-06-18] MEDS: CARVEDILOL 12.5 MG TABLET PO SCH ×2 (09:13→16:39)
[2022-06-18] MEDS: DOCUSATE SODIUM 100 MG CAPSULE PO SCH ×2 (09:13→16:39)
[2022-06-18] MEDS: HYDROMORPHONE 1 MG/1 ML DISP.SYRIN SQ PRN ×4 (09:36→19:42)
--- NOTE | 2022-06-18 18:52 | NUR ---
MS RN CLOSING NOTE PATIENT RECEIVED IN BED AND AWAKE. IV ACCESS TO LAC INTACT AND PATENT. C/O PAIN TO RIGHT KNEE (SURGICAL SITE) MULTIPLE TIMES. RECEIVED PRN DILAUDID AND OXY NEEDED PER SCHEDULED TIMES. PATIENT CONNECTED TO CPM MACHINE X 2HOURS. TOLERATED WELL, HOWEVER C/O EXTREME PAIN AFTER; RECEIVED PRN PAIN MEDICATION AFTER SESSION. TOLERATED WELL. SURGICAL SITE CONTINUES TO BE WRAPPED IN PIEDAD BANDAGE AND ELEVATED. PATIENT CONTINENT AND USING URINAL. TOLERATED ALL CARE AND MEALS WELL. SAFETY MEASURES IN PLACE WITH BED LOW AND LOCKED. SIDERAIL UP X2. CALL LIGHT WITHIN REACH. WILL CONTINUE TO MONITOR.
--- NOTE | 2022-06-18 19:30 | NUR ---
noc rn opening received patient in bed, a/ox4. no s/s of apparent distress on room air. c/o severe pain on his R. knee surgery site with tram wrap and immobilizer noted to be clean, dry, intact-- will medicate and manage with ice packs. IV access on L. ac #20G on saline lock. call light within reach, oriented and encouraged with the use of call light. will continue with the plan of care for patient.
[2022-06-18 20:00] VITALS: BP 149/86
[2022-06-18] MEDS: ATORVASTATIN 10 MG TABLET PO SCH (21:39)
[2022-06-18] MEDS: TAMSULOSIN 0.4 MG CAP.SR.24H PO SCH (21:40)
[2022-06-18] MEDS: ZOLPIDEM TARTRATE 5 MG TABLET PO PRN (21:40)
[2022-06-19] MEDS: oxyCODONE IR immediate release 5 MG PO PRN ×7 (00:16→22:52)
[2022-06-19 07:00] VITALS: BP 181/105
--- NOTE | 2022-06-19 07:30 | NUR ---
noc rn closing needs attended. report given to NAVIN Koch for continuity of care.
--- NOTE | 2022-06-19 07:45 | NUR ---
RN OPENING NOTES PATIENT AWAKE IN BED RESTING, A/O X 4. NO S/S OF PAIN NOTED AT THIS TIME. ON ROOM AIR, NO DISTRESS OR SHORTNESS OF BREATH NOTED. IV ACCESS LAC #20G, INTACT, PATENT, FLUSHING WELL. FALL AND SAFETY MEASURES IN PLACE, BED ALARM ON, BED IN LOW LOCK POSITION, CALL LIGHT AND TABLE WITHIN EASY REACH, SIDE RAILS UP X2. WILL CONTINUE TO MONITOR.
[2022-06-19] MEDS: ASPIRIN 325 MG TABLET PO SCH (09:27)
[2022-06-19] MEDS: DOCUSATE SODIUM 100 MG CAPSULE PO SCH ×2 (09:29→17:09)
[2022-06-19] MEDS: AMIODARONE HCL 200 MG TABLET PO SCH (09:29)
[2022-06-19] MEDS: FAMOTIDINE (20 MG) 20 MG TABLET PO SCH ×2 (09:29→20:45)
[2022-06-19] MEDS: CARVEDILOL 12.5 MG TABLET PO SCH ×2 (09:30→17:10)
[2022-06-19] MEDS: HYDROMORPHONE 1 MG/1 ML DISP.SYRIN SQ PRN ×4 (09:30→20:46)
--- NOTE | 2022-06-19 19:04 | NUR ---
RN CLOSING NOTES PATIENT AWAKE IN BED RESTING, A/O X 4. 3/10 PAIN LEVEL NOTED AT THIS TIME, PAIN MEDICATION GIVEN DURING THE SHIFT. ON ROOM AIR, NO DISTRESS OR SHORTNESS OF BREATH NOTED. IV ACCESS LAC #20G, INTACT, PATENT, FLUSHING WELL. SCHEDULE MEDICATIONS ADMINISTERED. ALL NEEDS ATTENDED AND ANTICIPATED. FALL AND SAFETY MEASURES IN PLACE, BED ALARM ON, BED IN LOW LOCK POSITION, CALL LIGHT AND TABLE WITHIN EASY REACH, SIDE RAILS UP X2. WILL ENDORSE TO INSURANCE CLAIMS CLERK.
--- NOTE | 2022-06-19 19:25 | NUR ---
Ms rn opening note received patient in bed, awake. Pt a/ox4, able to make needs known. No s/s of apparent distress noted, on room air. c/o severe pain on his Right knee, with pain management in place. Surgery site to Right knee with tram wrap clean, dry, and intact. IV access on L. ac #20G on saline lock. call light within reach, side rails up X 2, bed locked in low position. Will continue to monitor patient.
[2022-06-19 20:02] VITALS: BP 161/86
[2022-06-19] MEDS: ATORVASTATIN 10 MG TABLET PO SCH (21:07)
[2022-06-19] MEDS: TAMSULOSIN 0.4 MG CAP.SR.24H PO SCH (21:08)
[2022-06-20] MEDS: HYDROMORPHONE 1 MG/1 ML DISP.SYRIN SQ PRN ×2 (02:43→07:03)
[2022-06-20] MEDS: oxyCODONE IR immediate release 5 MG PO PRN ×3 (04:22→13:26)
--- NOTE | 2022-06-20 07:33 | NUR ---
RN CLOSING NOTES PATIENT AWAKE IN BED RESTING, A/O X 4. C/O PAIN TO RIGHT KNEE,PAIN MEDS GIVEN THROUGHOUT THE SHIFT ORDERED. ON ROOM AIR, NO RESPIRATORY DISTRESS OR SHORTNESS OF BREATH NOTED. IV ACCESS LAC #20G, INTACT, PATENT, FLUSHING WELL. ALL MEDICATIONS ADMINISTERED IN TIMELY MANNER. ALL NEEDS ATTENDED AND ANTICIPATED. FALL AND SAFETY MEASURES IN PLACE, BED ALARM ON, BED IN LOW LOCK POSITION, CALL LIGHT AND TABLE WITHIN EASY REACH, SIDE RAILS UP X2. WILL ENDORSE TO AM SHIFT NURSE.
--- NOTE | 2022-06-20 07:35 | NUR ---
ms rn received on bed, awake,alert,oriented x4, s/p right total knee replacement w/ dressing dry and intact, denies pain at this time, patient hesitant to go home at this time, will monitor patient patient.
[2022-06-20 08:21] VITALS: BP 164/89
--- NOTE | 2022-06-20 10:00 | NUR ---
ms rn on bed, no distress noted,all needs attended, up w/ physical therapy, a lot of pain.
[2022-06-20] MEDS: FAMOTIDINE (20 MG) 20 MG TABLET PO SCH (10:05)
[2022-06-20] MEDS: DOCUSATE SODIUM 100 MG CAPSULE PO SCH (10:05)
[2022-06-20] MEDS: ASPIRIN 325 MG TABLET PO SCH (10:05)
[2022-06-20] MEDS: AMIODARONE HCL 200 MG TABLET PO SCH (10:08)
[2022-06-20 10:09] VITALS: BP 169/89
[2022-06-20] MEDS: CARVEDILOL 12.5 MG TABLET PO SCH (10:09)
--- NOTE | 2022-06-20 12:00 | NUR ---
ms rn to go home today, but patient wants to stay.
--- NOTE | 2022-06-20 14:01 | NUR ---
ms rn patient ready to go home w/ home health, medicated for pain,all needs attended.
--- NOTE | 2022-06-20 14:03 | NUR ---
ms rn ready to go home, discharge instructions given and understood, patient stable.
--- NOTE | 2022-06-20 14:30 | NUR ---
ms rn patient went home, refused to change right knee dressing, denies pain, went home accompanied by ,no distress noted.
== END 2022-06-20 14:30 | disposition home health service (06) | DRG 470 ==
LOC: DS 06:30 → MED 17:28
PROVIDERS: ADMIT Student in an Organized Health Care Education/Training Program; ATTEND Nurse Practitioner Acute Care
PROC: 0SRC0J9 Replacement of Right Knee Joint with Synthetic Substitute, Cemented, Open Approach (ICD-10-PCS; principal; 2022-06-17)
DX: M17.11 Unilateral primary osteoarthritis, right knee (principal); I48.20 Chronic atrial fibrillation, unspecified; D68.59 Other primary thrombophilia; I10 Essential (primary) hypertension; Z20.822 Contact with and (suspected) exposure to COVID-19; E78.5 Hyperlipidemia, unspecified; Z96.652 Presence of left artificial knee joint; Z79.82 Long term (current) use of aspirin; Z79.899 Other long term (current) drug therapy; R79.89 Other specified abnormal findings of blood chemistry; M19.90 Unspecified osteoarthritis, unspecified site; E66.9 Obesity, unspecified; Z68.30 Body mass index [BMI] 30.0-30.9, adult
CPT/HCPCS: 36415; 80048-TC; 83735-TC; 84100-TC; 85025-TC; 87081-TC; 97116-TC; 97530-TC; 97760-TC; A4217; A6403; C1713; C1776; G0378; J0690; J1100; J1170; J1885; J2405; J2704; J3490; J7030; J7060; L1830

== ENCOUNTER 2022-08-13 09:00 | Outpatient (CLI) | payer MEDICARE ==
[~2022-08-13 09:00] MED LIST changes: -ANESTHESIA TRAY IN PYXIS 1 EA TRAY MC ONE; +ASPI-1169 PO; -ASPI-992 PO; +BUME1TAB8 PO; -BUPIVACAINE 0.5 % PF 150 MG/30 ML VIAL ONE; -HYDROMORPHONE INJ 2 MG/ML DISP.SYRIN ONE; -POLYMYXIN B SULFATE 500,000 UNITS ONE; +POTA10TA10 PO; -TRANEXAMIC ACID 3,000 MG in SODIUM CHLORIDE IRRIG SOLUTION 70 ML IR ONE
== END 2022-08-13 23:59 | disposition home or self-care (01) ==
LOC: MSC 09:00
PROVIDERS: ATTEND Anesthesiology
DX: M48.061 Spinal stenosis, lumbar region without neurogenic claudication (principal); M46.96 Unspecified inflammatory spondylopathy, lumbar region; M51.36 Other intervertebral disc degeneration, lumbar region; M47.816 Spondylosis without myelopathy or radiculopathy, lumbar region; M47.817 Spondylosis without myelopathy or radiculopathy, lumbosacral region; M53.3 Sacrococcygeal disorders, not elsewhere classified; M62.830 Muscle spasm of back; M25.9 Joint disorder, unspecified; M17.0 Bilateral primary osteoarthritis of knee; Z96.651 Presence of right artificial knee joint; M70.61 Trochanteric bursitis, right hip; M70.62 Trochanteric bursitis, left hip; M76.31 Iliotibial band syndrome, right leg; M76.32 Iliotibial band syndrome, left leg; Z79.891 Long term (current) use of opiate analgesic

== ENCOUNTER 2022-09-10 08:54 | Outpatient (CLI) | payer MEDICARE | END 2022-09-10 23:59 | disposition home or self-care (01) | LOC: MSC 08:54 | PROVIDERS: ATTEND Anesthesiology | DX: M48.061 Spinal stenosis, lumbar region without neurogenic claudication (principal); M51.36 Other intervertebral disc degeneration, lumbar region; M47.816 Spondylosis without myelopathy or radiculopathy, lumbar region; M47.817 Spondylosis without myelopathy or radiculopathy, lumbosacral region; M53.3 Sacrococcygeal disorders, not elsewhere classified; M17.0 Bilateral primary osteoarthritis of knee; Z96.653 Presence of artificial knee joint, bilateral; M70.61 Trochanteric bursitis, right hip; M70.62 Trochanteric bursitis, left hip; M76.31 Iliotibial band syndrome, right leg; M76.32 Iliotibial band syndrome, left leg; Z79.891 Long term (current) use of opiate analgesic ==

== ENCOUNTER 2022-12-31 11:10 | Outpatient (CLI) | payer MEDICARE | END 2022-12-31 23:59 | disposition home or self-care (01) | LOC: MSC 11:10 | PROVIDERS: ATTEND Anesthesiology | DX: M48.061 Spinal stenosis, lumbar region without neurogenic claudication (principal); M51.36 Other intervertebral disc degeneration, lumbar region; M47.816 Spondylosis without myelopathy or radiculopathy, lumbar region; M47.817 Spondylosis without myelopathy or radiculopathy, lumbosacral region; M53.3 Sacrococcygeal disorders, not elsewhere classified; M62.830 Muscle spasm of back; M17.0 Bilateral primary osteoarthritis of knee; M70.61 Trochanteric bursitis, right hip; M70.62 Trochanteric bursitis, left hip; M76.31 Iliotibial band syndrome, right leg; M76.32 Iliotibial band syndrome, left leg; Z79.891 Long term (current) use of opiate analgesic; M25.9 Joint disorder, unspecified ==

== ENCOUNTER 2023-12-22 05:09 | Day surgery (SDC) | payer MEDICARE ==
[2023-12-22] MEDS ORDERED: BUPIVACAINE 0.5 % PF 150 MG/30 ML VIAL ONE (06:18)
[2023-12-22] MEDS ORDERED: FENTANYL PF 250MCG/5ML AMPUL ONE (06:22)
[2023-12-22] MEDS ORDERED: ROCURONIUM BROMIDE 50 MG/5 ML ONE (06:23)
[2023-12-22] MEDS ORDERED: SEVOFLURANE 250 ML BOTTLE IH ONE (06:41)
== END 2023-12-22 08:33 | disposition home or self-care (01) ==
LOC: DS 05:09
PROVIDERS: ATTEND Specialist
DX: M17.0 Bilateral primary osteoarthritis of knee (principal); I10 Essential (primary) hypertension; I25.10 Atherosclerotic heart disease of native coronary artery without angina pectoris; I48.91 Unspecified atrial fibrillation; Z98.890 Other specified postprocedural states; Z79.899 Other long term (current) drug therapy
CPT/HCPCS: 27570; 29874; 93005; A4217; J0690; J1885; J2704; J3010; J3490; J7030